=== PATIENT | female | born 1935 | race Caucasian/White ===

== ENCOUNTER 2016-06-28 16:54 | Inpatient (IN) | payer OTHER ==
[~2016-06-28] VITALS: Ht 157.5 cm; Wt 55.8 kg
[~2016-06-28 16:54] MED LIST: ACET-1256 PO; ANT125 PO; CALC500C50; LOSA50TA6 PO; METO1TAB69 PO; NRV5 PO; POTA20TA16 PO
[2016-06-28] MEDS ORDERED: FURO-85 PO (17:58)
[2016-06-28 18:57] LABS: HEMATOCRIT 37.5 % (37-47); MEAN CELL VOLUME 86.2 fL (80-100); MEAN CORPUSCULAR HEMOGLOBIN 29.4 pg (25-34); MEAN CORPUSCULAR HGB CONC 34.1 g/dl (32-36); MEAN PLATELET VOLUME 9.5 fL (7.4-10.4); PLATELET COUNT 268 K/uL (130-400); RED BLOOD COUNT 4.35 M/uL (4.2-5.4); WHITE BLOOD COUNT 13.95 K/uL (4.8-10.8)
--- NOTE | 2016-06-28 19:04 | DIAGNOSTIC IMAGING REPORT ---
CHEST ONE VIEW PORTABLE CLINICAL HISTORY: cp dyspnea COMPARISON STUDY: 08/19/2015 FINDINGS: Emphysematous change with chronic interstitial fibrotic change. Superimposed left basilar infiltrate. No evidence for consolidation. IMPRESSION: Interstitial infiltrate left base. Baseline emphysematous change. Electronically signed by: Caleb Perkins M.D. 06/28/2016 7:02 PM Dictated Date/Time: 06/28/2016 7:02 PM
[2016-06-28 19:10] LABS: PROTHROMBIN TIME (PATIENT) 10.5 SECONDS (9.0-12.0)
--- NOTE | 2016-06-28 19:17 | DIAGNOSTIC IMAGING REPORT ---
HEAD CT NONCONTRAST CT DOSE: 537.48 mGy.cm HISTORY: Mental status change eval for bleed TECHNIQUE: Multiaxial CT images of the head were performed without the use of intravenous contrast. Comparison: 08/24/2015 Findings: The paranasal sinuses and mastoid air cells are clear. Moderate chronic small vessel change of aging. Mild atrophy. No evidence for acute intracranial hemorrhage. No change in the prior study. Impression: Chronic and age-related change. No acute process. Electronically signed by: Caleb Perkins M.D. 06/28/2016 7:15 PM Dictated Date/Time: 06/28/2016 7:14 PM
[2016-06-28 19:27] LABS: BUN/CREATININE RATIO 16.5 (10-20); CALCIUM 9.1 mg/dl (8.5-10.1); POTASSIUM 3.7 mmol/L (3.5-5.1)
[2016-06-28 19:36] LABS: BASO ABS # 0.13 K/uL (0-0.2); BASOPHIL % 0.9 %; COMPLETE YES; EOSINOPHIL % 2.6 %; LYMPH ABS # 4.37 K/uL (1.2-3.4); LYMPHOCYTE % 31.3 %; NEUTROPHILS % 36.5 %; VARIANT LYM ABS # 2.92 K/uL; VARIANT LYMPHOCYTE % 20.9 %
--- NOTE | 2016-06-28 20:34 | DIAGNOSTIC IMAGING REPORT ---
Right upper quadrant ultrasound GALLBLADDER-ABD LIMITED CLINICAL HISTORY: eval for cholecystitis pain. Nausea. TECHNIQUE: Ultrasound COMPARISON STUDY: None FINDINGS: The gallbladder is filled, initial gallstones and sludge. No significant pericholecystic fluid. Common bile duct 4 mm. Liver is uniform throughout. Pancreas shows partial fatty replacement. Right kidney is negative for hydronephrosis. IMPRESSION: 1. Gallstone and sludge filled gallbladder. 2. Normal caliber bile ducts. 3. Otherwise negative study Electronically signed by: Caleb Perkins M.D. 06/28/2016 8:33 PM Dictated Date/Time: 06/28/2016 8:32 PM
[2016-06-28] MEDS ORDERED: LEVAQUIN 750MG / 150ML D5W IV STA (21:06)
[2016-06-28 21:09] LABS: URINE APPEARANCE CLEAR (CLEAR); URINE BILIRUBIN NEG (NEG); URINE COLOR YELLOW; URINE NITRITE NEG (NEG); URINE SPECIFIC GRAVITY 1.005 (1.000-1.030); UROBILINOGEN NEG (NEG)
[2016-06-28 21:19] LABS: MANUAL MICROSCOPIC REQUIRED? NO; REVIEW REQ? NO
[2016-06-28] MEDS ORDERED: ACETAMINOPHEN 325 MG TAB PO PRN (22:30)
[2016-06-28] MEDS ORDERED: ONDANSETRON INJ 2 MG/ML 2 ML VIAL IV PRN (22:30)
[2016-06-28] MEDS ORDERED: NRV5 PO (22:34)
[2016-06-28] MEDS ORDERED: ONDA4TAB46 PO (22:34)
[2016-06-28] MEDS ORDERED: CALCIUM CARBONATE 500 MG CHEWABLE PO PRN (22:45)
[2016-06-28] MEDS ORDERED: MECLIZINE HCL 12.5 MG TAB PO PRN (22:45)
[2016-06-28] MEDS ORDERED: IV FLUIDS COMPLETED PRN (23:00)
--- NOTE | 2016-06-28 23:01 | Progress Note ---
Progress Note Date of Service Jun 28, 2016. Progress Note ATTENDING ADDENDUM care coordinated with FAROOQ Vargas please refer to her notes for full details, I agree with her notes patient seen and examined, records reviewed by myself as well on exam, patient seen with family at bedside patient is comfortable, resting in bed denies active abdominal pain, nausea, chills has cough, productive, does not seem to be different from baseline no other symptoms VS noted and reviewed oriented x 2 , not in distress, speaks in sentences with no effort nor accessory muscle use normal rate, regular rhythm, no murmurs clear breath sounds bilaterally non distended, soft, nontender, no you's sign no bipedal edema, erythema, warmth WBC 13.9 CXR: IMPRESSION: Interstitial infiltrate left base. Baseline emphysematous change. CT abdomen: cholelithiasis and sludge ASSESSMENT/PLAN> 80 year old female with history of Hypertension, Dyslipidemia, presenting with nausea, vomiting, weakness. CHOLELITHIASIS evaluated by Dr. Izaguirre 06/22/16, Surgery recommended at that time no signs of cholecystitis but with persistent nausea, poor appetite, weakness Dr. Taylor consulted POSSIBLE LEFT LOWER LOBE INFILTRATE ff up cultures empiric Doxycycline other diagnoses and plan of care as per FAROOQ Vargas's notes Satish Lennon MD
--- NOTE | 2016-06-28 23:08 | History and Physical ---
History & Physical Date & Time of Service: Jun 28, 2016 at 22:40 Chief Complaint: Gallbladder Issues Primary Care Physician: Cruz Perez M.D. History of Present Illness Source: patient, family (daughters at bedside), clinic records This is an 80 y/o female with PMH of Alzheimer's dementia, HTN, HL, and other problems listed below who presents to the ED with nausea. Patient was recently evaluated by Dr. Taylor on 06/22 for abdominal pain and vomiting with cholelithiasis on gallbladder ultrasound. Cholecystectomy was recommended but patient declined at that time. Family states she is no longer having abdominal pain, but since 3 days ago has been ill with nausea but no vomiting, poor PO intake, intermittent dizziness described as room spinning sensation, generalized weakness. Has history of Meniere's disease. Patient fell 3 days ago and hit her head on the door in the bathroom- she states this was due to tripping on her socks. There was no LOC or significant injury. Dizziness and nausea currently resolved. Patient has a chronic dry cough attributed to smoking. Denies focal weakness/ numbness, headache, fever, chills, rhinorrhea, sore throat, ear ache, tinnitus, abdominal pain, chest pain, SOB, diarrhea, constipation, hematochezia, melena, dysuria, frequency, jaundice, change in mental status. Denies sick contact, recent antibiotics or hospitalization. 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 (6) History of ITP Permanent Comment: dx in 2012, tx with prednisone, IVIG, rituxan Status: Chronic (7) Hypertension Status: Chronic (8) Tobacco use disorder Status: Chronic Surgical Problems: (1) H/O breast biopsy Status: Chronic (2) H/O oophorectomy Status: Chronic (3) H/O tubal ligation Status: Chronic Family History FH: pancreatic cancer MOTHER Social History Smoking Status: Current Every Day Smoker (1.5 ppd x 50 years) Alcohol Use: none Drug Use: none Marital Status: Occupational Status: retired Immunizations History of Influenza Vaccine: Yes History of Tetanus Vaccine?: Unknown History of Pneumococcal: Yes History of Hepatitis B Vaccine: No Allergies Coded Allergies: Lisinopril (Verified Allergy, Intermediate, COUGH, 06/28/16) Red Dye (Verified Allergy, Intermediate, DYES- HIVES, 06/28/16) Yellow Dyes (Verified Allergy, Intermediate, DYES- HIVES, 06/28/16) D&C Red #22 (Verified Allergy, Unknown, PER FAMILY, PT IS ALLERGIC TO ALL DYES, 06/28/16) Penicillins (Verified Allergy, Unknown, ., 06/28/16) Home Medications Scheduled Amlodipine Besylate (Amlodipine Besylate), 5 MG PO QAM Furosemide (Lasix), 20 MG PO QAM Losartan Potassium (Cozaar), 100 MG PO QPM Metoprolol Succ (Toprol Xl) (Toprol-Xl ), 50 MG PO QPM Potassium Ext Rel (Klor-Con), 10 MEQ PO QPM Scheduled PRN Acetaminophen (Tylenol), 1,000 MG PO Q6H PRN for Headache or Pain Calcium Carbonate (Antacid) (Tums), 2 TAB UD PRN for Indigestion Meclizine HCl (Meclizine HCl), 12.5 MG PO Q6H PRN for dizziness Ondansetron Hcl (Zofran), 4 MG PO Q6H PRN for Nausea Review of Systems Ten point ROS performed with pertinent positives and negatives noted in HPI. Physical Exam Vital Signs Date Time Temp Pulse Resp B/P Pulse Ox O2 Delivery O2 Flow Rate FiO2 06/28/16 20:51 94 Room Air 06/28/16 20:50 57 18 152/73 93 Room Air 06/28/16 19:26 58 06/28/16 17:11 36.4 70 20 169/72 97 Room Air General Appearance: no apparent distress, + thin, + pertinent finding (alert cooperative 80 year old female, no distress, daughters at bedside) Head: normocephalic, atraumatic Eyes: normal inspection, PERRL, EOMI ENT: pharynx normal, + pertinent finding (cerumen occluding left TM. right TM normal. dry oral mucosa. chronic left ear hearing loss. right ear grossly normal hearing. ) Neck: supple, trachea midline Respiratory/Chest: lungs clear, normal breath sounds, no respiratory distress Cardiovascular: regular rate, rhythm, no murmur Abdomen/GI: normal bowel sounds, non tender, soft Extremities/Musculoskelatal: no calf tenderness, no pedal edema Neurologic/Psych: alert, normal mood/affect, oriented x 3, + pertinent finding (grossly nonfocal. mild short term memory loss. ) Skin: normal color, warm/dry Diagnostics Laboratory Results Results Past 24 Hours Test 06/28/16 17:15 06/28/16 18:32 06/28/16 18:41 Range/Units Urine Color YELLOW Urine Appearance CLEAR CLEAR Urine pH 5.0 4.5-7.5 Urine Specific [place] 1.005 1.000-1.030 Urine Protein NEG NEG Urine Glucose (UA) NEG NEG Urine Ketones NEG NEG Urine Occult Blood NEG NEG Urine Nitrite NEG NEG Urine Bilirubin NEG NEG Urine Urobilinogen NEG NEG Urine Leukocyte Esterase NEG NEG White Blood Count 13.95 4.8-10.8 K/uL Red Blood Count 4.35 4.2-5.4 M/uL Hemoglobin 12.8 12.0-16.0 g/dL Hematocrit 37.5 37-47 % Mean Corpuscular Volume 86.2 80-100 fL Mean Corpuscular Hemoglobin 29.4 25-34 pg Mean Corpuscular Hemoglobin Concent 34.1 32-36 g/dl Platelet Count 268 130-400 K/uL Mean Platelet Volume 9.5 7.4-10.4 fL RDW Standard Deviation 45.7 36.4-46.3 fL RDW Coefficient of Variation 14.5 11.5-14.5 % Neutrophils % (Manual) 36.5 % Lymphocytes % (Manual) 31.3 % Variant Lymphocytes % (manual) 20.9 % Monocytes % (Manual) 7.8 % Eosinophils % (Manual) 2.6 % Basophils % (Manual) 0.9 % Neutrophils # (Manual) 5.09 1.4-6.5 K/uL Total Absolute Neutrophils 5.09 1.4-6.5 K/uL Lymphocytes # (Manual) 4.37 1.2-3.4 K/uL Absolute Variant Lymphocytes 2.92 K/uL Total Absolute Lymphocytes 7.28 1.2-3.4 K/uL Monocytes # (Manual) 1.09 0.11-0.59 K/uL Eosinophils # (Manual) 0.36 0-0.5 K/uL Basophils # (Manual) 0.13 0-0.2 K/uL Prothrombin Time 10.5 9.0-12.0 SECONDS Prothromb Time International Ratio 1.0 0.9-1.1 Activated Partial Thromboplast Time 26.1 21.0-31.0 SECONDS Partial Thromboplastin Ratio 1.0 Sodium Level 138 136-145 mmol/L Potassium Level 3.7 3.5-5.1 mmol/L Chloride Level 101 98-107 mmol/L Carbon Dioxide Level 30 21-32 mmol/L Anion Gap 7.0 3-11 mmol/L Blood Urea Nitrogen 17 7-18 mg/dl Creatinine 1.00 0.60-1.20 mg/dl Est Creatinine Clear Calc Drug Dose 36.3 ml/min Estimated GFR () 61.6 Estimated GFR (Non- 53.2 BUN/Creatinine Ratio 16.5 10-20 Random Glucose 111 70-99 mg/dl Calcium Level 9.1 8.5-10.1 mg/dl Total Bilirubin 0.5 0.2-1 mg/dl Direct Bilirubin 0.1 0-0.2 mg/dl Aspartate Amino Transf (AST/SGOT) 18 15-37 U/L Alanine Aminotransferase (ALT/SGPT) 20 12-78 U/L Alkaline Phosphatase 77 45-117 U/L Total Protein 7.0 6.4-8.2 gm/dl Albumin 3.6 3.4-5.0 gm/dl Lipase 139 73-393 U/L Bedside Troponin I 0.000 0-0.045 ng/ml Microbiology Results 06/28/16 Blood Culture, Received Pending 06/28/16 Blood Culture, Received Pending 06/28/16 Urine Culture, Received Pending Diagnostic Radiology HEAD CT NONCONTRAST CT DOSE: 537.48 mGy.cm HISTORY: Mental status change eval for bleed TECHNIQUE: Multiaxial CT images of the head were performed without the use of intravenous contrast. Comparison: 08/24/2015 Findings: The paranasal sinuses and mastoid air cells are clear. Moderate chronic small vessel change of aging. Mild atrophy. No evidence for acute intracranial hemorrhage. No change in the prior study. Impression: Chronic and age-related change. No acute process. Right upper quadrant ultrasound GALLBLADDER-ABD LIMITED CLINICAL HISTORY: eval for cholecystitis pain. Nausea. TECHNIQUE: Ultrasound COMPARISON STUDY: None FINDINGS: The gallbladder is filled, initial gallstones and sludge. No significant pericholecystic fluid. Common bile duct 4 mm. Liver is uniform throughout. Pancreas shows partial fatty replacement. Right kidney is negative for hydronephrosis. IMPRESSION: 1. Gallstone and sludge filled gallbladder. 2. Normal caliber bile ducts. 3. Otherwise negative study CHEST ONE VIEW PORTABLE CLINICAL HISTORY: cp dyspnea COMPARISON STUDY: 08/19/2015 FINDINGS: Emphysematous change with chronic interstitial fibrotic change. Superimposed left basilar infiltrate. No evidence for consolidation. IMPRESSION: Interstitial infiltrate left base. Baseline emphysematous change. EKG sinus bradycardia with nonspecific STTWA in V4-V5, no significant change when compared to prior EKG Impression Assessment and Plan SYMPTOMATIC CHOLELITHIASIS Has known gallstones; seen by Dr. Taylor as outpatient on 06/22; surgery recommended but patient declined at that time GB ultrasound- gallstone and sludge filled gallbladder, normal bile ducts, no evidence of acute cholecystitis Clear liquid diet tonight NPO after midnight Gentle IVF's PRN antiemetics General surgery consulted; patient will be seen tomorrow am POSSIBLE PNEUMONIA Possible LLL infiltrate on CXR Has chronic nonproductive cough; hx limited somewhat by dementia Afebrile; + leukocytosis (WBC approx 14k) Given dose of Levaquin in ER Continue empiric treatment with doxycycline Blood cultures pending; check sputum culture HYPERTENSION Continue amlodipine, losartan, metoprolol DIASTOLIC DYSFUNCTION Appears dry on examination Hold Lasix Getting gentle IVF's S/P FALL Likely mechanical fall from history + head trauma CT head- no acute findings Fall precautions PT/ OT evaluations VERTIGO Continue PRN meclizine DVT PROPHYLAXIS SCD's CODE STATUS DNR per my discussion with patient and family Patient seen in collaboration with Dr. Lennon. Please see his addendum. VTE Prophylaxis VTE Risk Assessment Done? Y/N: Yes Risk Level: Moderate
--- NOTE | 2016-06-28 23:34 | EMERGENCY ROOM VISIT NOTE ---
History Report prepared by Eduardo: Renetta Munoz Under the Supervision of: Dr. Casper Gomez M.D. First contact with patient: 18:12 Chief Complaint: GI ASSESSMENT Stated Complaint: GALLBLADDER ISSUES Nursing Triage Summary: PT HAS GALL STONES, SAW DR. MARTIN LAST WEEK, NO SURGERY SCHEDULED YET, BUT CALLED PCP TODAY FOR WORSENING SYMPTOMS OF NAUSEA AND DIZZINESS AND WAS DIRECTED TO COME HERE BECAUSE DR. [employer]DE [employer] IS MAINTENANCE CLERK FOR SURGERY TODAY. History of Present Illness The patient is a 80 year old female who presents to the Emergency Room with complaints of intermittent nausea and vomiting starting a few weeks ago. She has been taking TUMS without relief. She had abdominal pain last week but denies any abdominal pain this week. She has had a loss of appetite, and generalized weakness. She also started having room-spinning dizziness 3 days ago. The dizziness only occurs with ambulation. 2 days ago, the patient fell and hit the back of her head on a door. The patient currently denies any dizziness or abdominal pain. She feels fatigued. She denies fevers, headache, chest pain, shortness of breath, diarrhea, black/bloody stools, or any other complaints. As per family member, the patient had an ultrasound which showed several gallstones. She was referred to the Emergency Room by her PCP for a cholecystectomy. Source of History: patient, family Onset: a few weeks ago Position: other (global) Quality: other (nausea and vomiting) Timing: intermittent Modifying Factors (Relieving): other (TUMS without relief) Associated Symptoms: + fatigue, + weakness, No SOB, No chest pain, No diarrhea, No fevers, No headache Review of Systems See HPI for pertinent positives & negatives. A total of 10 systems reviewed and were otherwise negative. 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 (8) HTN (hypertension) (9) Hypertension (10) Hypertensive urgency (11) Pneumonia (12) Pneumonia (13) Tobacco use disorder Surgical Problems: (1) H/O breast biopsy (2) H/O oophorectomy (3) H/O tubal ligation Family History Patient reports no known family medical history. Social History Smoking Status: Current Every Day Smoker Alcohol Use: none Drug Use: none Marital Status: Housing Status: lives with family Occupation Status: retired Current/Historical Medications Scheduled Amlodipine Besylate (Amlodipine Besylate), 5 MG PO QAM Furosemide (Lasix), 20 MG PO QAM Losartan Potassium (Cozaar), 100 MG PO QPM Metoprolol Succ (Toprol Xl) (Toprol-Xl ), 50 MG PO QPM Potassium Ext Rel (Klor-Con), 10 MEQ PO QPM Scheduled PRN Acetaminophen (Tylenol), 1,000 MG PO Q6H PRN for Headache or Pain Calcium Carbonate (Antacid) (Tums), 2 TAB UD PRN for Indigestion Meclizine HCl (Meclizine HCl), 12.5 MG PO Q6H PRN for dizziness Ondansetron Hcl (Zofran), 4 MG PO Q6H PRN for Nausea Allergies Coded Allergies: Lisinopril (Verified Allergy, Intermediate, COUGH, 06/28/16) Red Dye (Verified Allergy, Intermediate, DYES- HIVES, 06/28/16) Yellow Dyes (Verified Allergy, Intermediate, DYES- HIVES, 06/28/16) D&C Red #22 (Verified Allergy, Unknown, PER FAMILY, PT IS ALLERGIC TO ALL DYES, 06/28/16) Penicillins (Verified Allergy, Unknown, ., 06/28/16) Physical Exam Vital Signs Date Time Temp Pulse Resp B/P Pulse Ox O2 Delivery O2 Flow Rate FiO2 06/28/16 20:51 94 Room Air 06/28/16 20:50 57 18 152/73 93 Room Air 06/28/16 19:26 58 06/28/16 17:11 36.4 70 20 169/72 97 Room Air Physical Exam Constitutional: Vital signs reviewed. Eyes: Pupils are equal round reactive to light. Conjunctiva are noninjected. ENT: Pharynx is clear without erythema or exudate. Mucous membranes are moist. Neck supple without meningeal signs. Respiratory: Clear to auscultation bilaterally. Breath sounds are equal bilaterally. Cardiovascular: Regular rate and rhythm. No rubs or gallops. GI: Soft, nondistended and nontender. Bowel sounds are present. Musculoskeletal: No peripheral edema. No lower extremity tenderness. Integumentary: No cyanosis. Neurological: The patient is awake and alert. No focal deficits. Psychiatric: Normal affect. Medical Decision & Procedures ER Provider Diagnostic Interpretation: X-ray results as stated below per interpretation by me and the radiologist: CHEST ONE VIEW PORTABLE CLINICAL HISTORY: cp dyspnea COMPARISON STUDY: 08/19/2015 FINDINGS: Emphysematous change with chronic interstitial fibrotic change. Superimposed left basilar infiltrate. No evidence for consolidation. IMPRESSION: Interstitial infiltrate left base. Baseline emphysematous change. Electronically signed by: Caleb Perkins M.D. 06/28/2016 7:02 PM Dictated Date/Time: 06/28/2016 7:[address] results as stated below per my review and radiologist interpretation. Right upper quadrant ultrasound GALLBLADDER-ABD LIMITED CLINICAL HISTORY: eval for cholecystitis pain. Nausea. TECHNIQUE: Ultrasound COMPARISON STUDY: None FINDINGS: The gallbladder is filled, initial gallstones and sludge. No significant pericholecystic fluid. Common bile duct 4 mm. Liver is uniform throughout. Pancreas shows partial fatty replacement. Right kidney is negative for hydronephrosis. IMPRESSION: 1. Gallstone and sludge filled gallbladder. 2. Normal caliber bile ducts. 3. Otherwise negative study Electronically signed by: Caleb Perkins M.D. 06/28/2016 8:33 PM Dictated Date/Time: 06/28/2016 8:[address] NON[address]AST CT DOSE: 537.48 mGy.cm HISTORY: Mental status change eval for bleed TECHNIQUE: Multiaxial CT images of the head were performed without the use of intravenous contrast. Comparison: 08/24/2015 Findings: The paranasal sinuses and mastoid air cells are clear. Moderate chronic small vessel change of aging. Mild atrophy. No evidence for acute intracranial hemorrhage. No change in the prior study. Impression: Chronic and age-related change. No acute process. Electronically signed by: Caleb Perkins M.D. 06/28/2016 7:15 PM Dictated Date/Time: 06/28/2016 7:14 PM Laboratory Results 06/28/16 18:32 Red Blood Count 4.35, Mean Corpuscular Volume 86.2, Mean Corpuscular Hemoglobin 29.4, Mean Corpuscular Hemoglobin Concent 34.1, Mean Platelet Volume 9.5 06/28/16 18:32 Test 06/28/16 17:15 06/28/16 18:32 06/28/16 18:41 Urine Color YELLOW Urine Appearance CLEAR (CLEAR) Urine pH 5.0 (4.5-7.5) Urine Specific [place] 1.005 (1.000-1.030) Urine Protein NEG (NEG) Urine Glucose (UA) NEG (NEG) Urine Ketones NEG (NEG) Urine Occult Blood NEG (NEG) Urine Nitrite NEG (NEG) Urine Bilirubin NEG (NEG) Urine Urobilinogen NEG (NEG) Urine Leukocyte Esterase NEG (NEG) White Blood Count 13.95 K/uL (4.8-10.8) Red Blood Count 4.35 M/uL (4.2-5.4) Hemoglobin 12.8 g/dL (12.0-16.0) Hematocrit 37.5 % (37-47) Mean Corpuscular Volume 86.2 fL (80-100) Mean Corpuscular Hemoglobin 29.4 pg (25-34) Mean Corpuscular Hemoglobin Concent 34.1 g/dl (32-36) Platelet Count 268 K/uL (130-400) Mean Platelet Volume 9.5 fL (7.4-10.4) RDW Standard Deviation 45.7 fL (36.4-46.3) RDW Coefficient of Variation 14.5 % (11.5-14.5) Neutrophils % (Manual) 36.5 % Lymphocytes % (Manual) 31.3 % Variant Lymphocytes % (manual) 20.9 % Monocytes % (Manual) 7.8 % Eosinophils % (Manual) 2.6 % Basophils % (Manual) 0.9 % Neutrophils # (Manual) 5.09 K/uL (1.4-6.5) Total Absolute Neutrophils 5.09 K/uL (1.4-6.5) Lymphocytes # (Manual) 4.37 K/uL (1.2-3.4) Absolute Variant Lymphocytes 2.92 K/uL Total Absolute Lymphocytes 7.28 K/uL (1.2-3.4) Monocytes # (Manual) 1.09 K/uL (0.11-0.59) Eosinophils # (Manual) 0.36 K/uL (0-0.5) Basophils # (Manual) 0.13 K/uL (0-0.2) Prothrombin Time 10.5 SECONDS (9.0-12.0) Prothromb Time International Ratio 1.0 (0.9-1.1) Activated Partial Thromboplast Time 26.1 SECONDS (21.0-31.0) Partial Thromboplastin Ratio 1.0 Anion Gap 7.0 mmol/L (3-11) Est Creatinine Clear Calc Drug Dose 36.3 ml/min Estimated GFR () 61.6 Estimated GFR (Non- 53.2 BUN/Creatinine Ratio 16.5 (10-20) Calcium Level 9.1 mg/dl (8.5-10.1) Total Bilirubin 0.5 mg/dl (0.2-1) Direct Bilirubin 0.1 mg/dl (0-0.2) Aspartate Amino Transf (AST/SGOT) 18 U/L (15-37) Alanine Aminotransferase (ALT/SGPT) 20 U/L (12-78) Alkaline Phosphatase 77 U/L (45-117) Total Protein 7.0 gm/dl (6.4-8.2) Albumin 3.6 gm/dl (3.4-5.0) Lipase 139 U/L (73-393) Bedside Troponin I 0.000 ng/ml (0-0.045) Laboratory results as reviewed by me. Medications Administered Medications (Trade) Dose Ordered Sig/Abhilash Route Start Time Stop Time Status Last Admin Dose Admin Levofloxacin (Levaquin / D5W) 750 mg NOW STAT IV 06/28/16 21:06 06/28/16 21:07 DC 06/28/16 21:52 750 MG ECG Indication: nausea, vomiting, weakness Rate (beats per minute): 58 Rhythm: sinus bradycardia Findings: nonspecific-ST abn (Lateral), T-wave inversion (v3-v4), no ectopy Comparison ECG Date: August 25, 2015 Change: no significant change ED Course 1811: The patient was evaluated in room C10. A complete history and physical exam was performed. 1849: I discussed the patient's case with Dr. Leiva, general surgeon with [facility] [employer] [facility]. He wants to see the patient's ultrasound and the white blood cell count before giving me his recommendations. 2044: I discussed the patient's case with Dr. Leiva. He recommended hospitalizing the patient and Dr. Martin will evaluate her tomorrow. 2050: I reevaluated the patient who is resting comfortably. I discussed test results with the patient and her family. I also discussed the treatment plan with the patient and her family. They verbalized agreement. She will be evaluated for further management and care. 2104: I discussed the patient's case with Dr. Santo, from [facility] Hospitalist Service. 2105: Levofloxacin 750 mg IV Medical Decision This is an 80-year-old female presents with nausea, head injury and generalized weakness. Differential diagnosis includes metabolic derangement, intracranial hemorrhage, anemia, cardiac, infection. I did perform a limited focused review of portions of the patient's old chart on the electronic medical record. The patient was admitted for vertigo on August 24, 2015. MRI of her brain in August 2015 showed no acute process. I did evaluate the patient as noted above. The patient states she was sent here by her PCP for cholecystectomy as she had gallstones on her ultrasound weeks ago. She, however, denies having any abdominal pain at this time. She does state that she feels weak and lightheaded when she stands up and also fell and hit her head recently. IV access was established. The patient was placed on a continuous monitoring tech. I did order and personally review the patient' s 12-lead EKG and chest x-ray as described above. She does appear to have a left-sided infiltrate. I did order and review the patient's blood work as noted in the electronic medical record. Her white blood cell count is elevated. LFTs are unremarkable. I did order a CT of the head. I did review the images myself as well as the radiology report as described above. There is no evidence of intracranial hemorrhage. I did order a right upper quadrant ultrasound which showed gallstones without signs of cholecystitis. I did order blood cultures and treated patient with Levaquin IV. I did discuss the test results with the patient and her family. I did discuss the case with the surgeon on-call who felt that there was no indication for acute cholecystectomy. He recommended hospitalization by the hospitalist service and consultation in the morning by Dr. Martin. I did discuss the case with the hospitalist and registered nurse hh case manager. Consults Time Called: 1844 Consulting Physician: Dr. Leiva, general surgeon with [facility] Returned Call: 1849 I discussed the patient's case with Dr. Leiva, general surgeon with [facility]. He wants to see the patient's ultrasound and the white blood cell count before giving me his recommendations. Additional Consults: Time Called: 2053 Consulted Physician: Dr. Santo, from [facility] Service Returned Call: 2104 Additional Comments: I discussed the patient's case with Dr. Santo, from [facility] Service. Impression Primary Impression: Pneumonia involving left lung Additional Impressions: Dizziness Cholelithiasis Acute head injury Scribe Attestation The scribe's documentation has been prepared under my direct and personally reviewed by me in its entirety. I confirm that the note above accurately reflects all work, treatment, procedures, and medical decision making performed by me. Departure Information Dispostion Being Evaluated By Hospitalist Prescriptions Amlodipine Besylate (Amlodipine Besylate) 5 Mg Tab 5 MG PO QAM for 30 Days, #30 TABS 2 Refills Prov: Christina Vargas PA-C 06/28/16 Referrals Cruz Perez M.D. (PCP) Patient Instructions [facility] Problem Qualifiers Primary Impression: Pneumonia involving left lung Pneumonia type: due to unspecified organism Lung location: unspecified part of lung Qualified Codes: J18.9 - Pneumonia, unspecified organism Additional Impressions: Cholelithiasis Cholelithiasis location: gallbladder Cholecystitis presence: without cholecystitis Biliary obstruction: without biliary obstruction Qualified Codes: K80.20 - Calculus of gallbladder without cholecystitis without obstruction Acute head injury Encounter type: initial encounter Qualified Codes: S09.90XA - Unspecified injury of head, initial encounter
[2016-06-29 00:10] VITALS: BP 127/60; PULSE 65; TEMP 36.9; O2SAT 92
[2016-06-29] MEDS: D5W AND NSS 1,000 ML IV SCH ×2 (01:59→15:32)
[2016-06-29 04:03] VITALS: Ht 157.5 cm; Wt 55.8 kg
[2016-06-29] MEDS ORDERED: PNEUMOCOCCAL POLYSACCHARIDES 25 MCG/0.5 ML VIAL/SYR IM. ONE (05:45)
[2016-06-29] MEDS ORDERED: PNEUMOCOCCAL ADMINISTRATION CHARGE ONE (05:45)
[2016-06-29 06:17] LABS: HEMATOCRIT 32.1 % (37-47); MEAN CELL VOLUME 86.8 fL (80-100); MEAN CORPUSCULAR HEMOGLOBIN 29.7 pg (25-34); MEAN CORPUSCULAR HGB CONC 34.3 g/dl (32-36); PLATELET COUNT 223 K/uL (130-400); WHITE BLOOD COUNT 11.83 K/uL (4.8-10.8)
[2016-06-29] MEDS ORDERED: DOXYCYCLINE HYCLATE 100 MG CAP PO SCH (07:00)
[2016-06-29 07:30] VITALS: BP 125/61; PULSE 59; TEMP 36.5; O2SAT 92
[2016-06-29] MEDS ORDERED: AMLODIPINE BESYLATE 5 MG TAB PO SCH (09:00)
--- NOTE | 2016-06-29 11:22 | Surgery Consultation ---
Consultation Date of Consultation: Jun 29, 2016. Attending Physician: Andria Martinez DO History of Present Illness Virginia is a pleasant 80 year-old female who presented to emergency department with complaint of nausea, poor oral intake, weakness, and status post fall. She states her children contacted her PCP because of her issues with nausea and poor intake and her PCP advised her to report to the emergency department. Virginia saw Dr. Taylor as an outpatient last week for gallstones and was advised of cholecystectomy however patient declined at that time. Virginia overall states she has been getting nauseated off and on for the past couple of weeks however her daughter arrived later and said this has been going on for the past year but just recently got bad in the last week. Virginia believes she is getting enough to eat but might not be getting enough nutrition. Denies of any fever, chills, vomiting, vomiting blood, severe heartburn/reflux, abdominal pain, pain postprandial, changes in bowel habits, diarrhea, constipation, blood in stools, black/tarry stools, jaundice, or acholic stools. Labs in the ER showed leukocytosis of 13.95 however electrolytes were within normal limits as well as LFTS and total and direct bilirubin. US of the abdomen showed gallstones and gallbladder sludge however no evidence of pericholecystic fluid, thickened gallbladder or dilated CBD. A chest x-ray did show a interstitial infiltrate in the left base. Past Medical/Surgical History Medical Problems: (1) Acute head injury Status: Acute (2) Cholelithiasis Status: Acute (3) Dizziness Status: Acute (4) Elevated troponin Status: Acute (5) Hypertensive emergency Status: Acute (6) Mild dehydration Status: Acute (7) Pneumonia involving left lung Status: Acute (8) Vertigo Status: Acute Family History FH: pancreatic cancer MOTHER Social History Smoking Status: Current Every Day Smoker Alcohol Use: none Drug Use: none Marital Status: Housing Status: lives with family Occupation Status: retired Allergies Coded Allergies: Lisinopril (Verified Allergy, Intermediate, COUGH, 06/28/16) Red Dye (Verified Allergy, Intermediate, DYES- HIVES, 06/28/16) Yellow Dyes (Verified Allergy, Intermediate, DYES- HIVES, 06/28/16) D&C Red #22 (Verified Allergy, Unknown, PER FAMILY, PT IS ALLERGIC TO ALL DYES, 06/28/16) Penicillins (Verified Allergy, Unknown, ., 06/28/16) Home Medications Scheduled Amlodipine Besylate (Amlodipine Besylate), 5 MG PO QAM Doxycycline Hyclate (Doxycycline Hyclate), 100 MG PO BID Furosemide (Lasix), 20 MG PO QAM Losartan Potassium (Cozaar), 100 MG PO QPM Metoprolol Succ (Toprol Xl) (Toprol-Xl ), 50 MG PO QPM Potassium Ext Rel (Klor-Con), 10 MEQ PO QPM Scheduled PRN Acetaminophen (Tylenol), 1,000 MG PO Q6H PRN for Headache or Pain Calcium Carbonate (Antacid) (Tums), 2 TAB UD PRN for Indigestion Meclizine HCl (Meclizine HCl), 12.5 MG PO Q6H PRN for dizziness Ondansetron Hcl (Zofran), 4 MG PO Q6H PRN for Nausea Current Inpatient Medications Current Inpatient Medications Medications (Trade) Dose Ordered Sig/Abhilash Route Start Time Stop Time Status Last Admin Dose Admin Acetaminophen (Tylenol Tab) 650 mg Q4H PRN PO 06/28/16 22:30 07/28/16 22:29 Ondansetron HCl 4 mg 4 mg Q6H PRN IV 06/28/16 22:30 07/28/16 22:29 Dextrose/Sodium Chloride (D5W And Nss) 1,000 ml @ 60 mls/hr [id number] IV 06/28/16 22:45 07/28/16 22:44 06/29/16 01:59 60 MLS/HR Doxycycline Hyclate (Vibramycin Cap) 100 mg BID PO 06/29/16 07:00 07/06/16 06:59 06/29/16 08:42 100 MG Amlodipine Besylate (Norvasc Tab) 5 mg QAM PO 06/29/16 09:00 07/29/16 08:59 Calcium Carbonate (Tums Chew Tab) 1,000 mg Q6 PRN PO 06/28/16 22:45 07/28/16 22:44 Losartan Potassium (coZAAR TAB) 100 mg QPM PO 06/29/16 21:00 07/29/16 20:59 Meclizine HCl (Antivert Tab) 12.5 mg Q6H PRN PO 06/28/16 22:45 07/28/16 22:44 Metoprolol Succinate (Toprol Xl Tab) 50 mg QPM PO 06/29/16 21:00 07/29/16 20:59 Potassium Chloride (Klor-Con M10) 10 meq QPM PO 06/29/16 21:00 07/29/16 20:59 Miscellaneous (Iv Fluids Completed) 1 ea PRN PRN N/A 06/28/16 23:00 06/28/17 22:59 Review of Systems Constitutional: + fatigue, No chills, No fever, No sweats ENT: No hearing loss Respiratory: No shortness of breath Cardiovascular: No chest pain Abdomen: + nausea, No constipation, No diarrhea, No pain, No vomiting Genitourinary - Female: No dysuria, No urinary frequency, No urinary urgency Neurologic: + weakness Integumentary: No rash Physical Exam Date Time Temp Pulse Resp B/P Pulse Ox O2 Delivery O2 Flow Rate FiO2 06/29/16 07:30 36.5 59 17 125/61 92 Room Air 06/29/16 07:30 Room Air 06/29/16 04:03 Room Air 06/29/16 00:10 36.9 65 16 127/60 92 Room Air 06/29/16 00:10 Room Air 06/28/16 23:48 64 18 105/43 92 Room Air 06/28/16 20:51 94 Room Air 06/28/16 20:50 57 18 152/73 93 Room Air 06/28/16 19:26 58 06/28/16 17:11 36.4 70 20 169/72 97 Room Air General Appearance: WD/WN, no apparent distress Head: normocephalic, atraumatic Eyes: sclerae normal ENT: hearing grossly normal Neck: supple, trachea midline Respiratory/Chest: lungs clear, normal breath sounds, no respiratory distress, no accessory muscle use Cardiovascular: regular rate, rhythm, no murmur Abdomen/GI: non tender, soft, no organomegaly, no pulsatile mass Neurologic/Psych: alert, normal mood/affect, oriented x 3 Skin: normal color, warm/dry, no rash Laboratory Results Last 24 Hours Test 06/28/16 17:15 06/28/16 18:32 06/28/16 18:41 06/29/16 05:50 Urine Color YELLOW Urine Appearance CLEAR Urine pH 5.0 Urine Specific [place] 1.005 Urine Protein NEG Urine Glucose (UA) NEG Urine Ketones NEG Urine Occult Blood NEG Urine Nitrite NEG Urine Bilirubin NEG Urine Urobilinogen NEG Urine Leukocyte Esterase NEG White Blood Count 13.95 K/uL 11.83 K/uL Red Blood Count 4.35 M/uL 3.70 M/uL Hemoglobin 12.8 g/dL 11.0 g/dL Hematocrit 37.5 % 32.1 % Mean Corpuscular Volume 86.2 fL 86.8 fL Mean Corpuscular Hemoglobin 29.4 pg 29.7 pg Mean Corpuscular Hemoglobin Concent 34.1 g/dl 34.3 g/dl Platelet Count 268 K/uL 223 K/uL Mean Platelet Volume 9.5 fL 9.0 fL RDW Standard Deviation 45.7 fL 45.7 fL RDW Coefficient of Variation 14.5 % 14.5 % Neutrophils % (Manual) 36.5 % Lymphocytes % (Manual) 31.3 % Variant Lymphocytes % (manual) 20.9 % Monocytes % (Manual) 7.8 % Eosinophils % (Manual) 2.6 % Basophils % (Manual) 0.9 % Neutrophils # (Manual) 5.09 K/uL Total Absolute Neutrophils 5.09 K/uL Lymphocytes # (Manual) 4.37 K/uL Absolute Variant Lymphocytes 2.92 K/uL Total Absolute Lymphocytes 7.28 K/uL Monocytes # (Manual) 1.09 K/uL Eosinophils # (Manual) 0.36 K/uL Basophils # (Manual) 0.13 K/uL Prothrombin Time 10.5 SECONDS Prothromb Time International Ratio 1.0 Activated Partial Thromboplast Time 26.1 SECONDS Partial Thromboplastin Ratio 1.0 Sodium Level 138 mmol/L Potassium Level 3.7 mmol/L Chloride Level 101 mmol/L Carbon Dioxide Level 30 mmol/L Anion Gap 7.0 mmol/L Blood Urea Nitrogen 17 mg/dl Creatinine 1.00 mg/dl Est Creatinine Clear Calc Drug Dose 36.3 ml/min Estimated GFR () 61.6 Estimated GFR (Non- 53.2 BUN/Creatinine Ratio 16.5 Random Glucose 111 mg/dl Calcium Level 9.1 mg/dl Total Bilirubin 0.5 mg/dl Direct Bilirubin 0.1 mg/dl Aspartate Amino Transf (AST/SGOT) 18 U/L Alanine Aminotransferase (ALT/SGPT) 20 U/L Alkaline Phosphatase 77 U/L Total Protein 7.0 gm/dl Albumin 3.6 gm/dl Lipase 139 U/L Bedside Troponin I 0.000 ng/ml Right upper quadrant ultrasound GALLBLADDER-ABD LIMITED CLINICAL HISTORY: eval for cholecystitis pain. Nausea. TECHNIQUE: Ultrasound COMPARISON STUDY: None FINDINGS: The gallbladder is filled, initial gallstones and sludge. No significant pericholecystic fluid. Common bile duct 4 mm. Liver is uniform throughout. Pancreas shows partial fatty replacement. Right kidney is negative for hydronephrosis. IMPRESSION: 1. Gallstone and sludge filled gallbladder. 2. Normal caliber bile ducts. 3. Otherwise negative study Assessment & Plan Gallstones and Gallbladder sludge with associated Chronic Nausea and poor appetite - Per patient has been last couple of weeks - Per daughter has been going for at least the last year but increasingly worse this past week - No evidence of acute cholecystitis - Outpatient evaluation by DR. Taylor last week, pt declined surgery at the time LLL Infiltrate/Pneumonia Plan: Patient is not having any abdominal pain and abdominal examination completely benign Would recommend outpatient cholecystectomy given patient's continued Nausea and poor appetite. Would also defer the cholecystectomy to be elective given patient is currently being treated for Pneumonia. Will have patient follow-up in office once discharged to schedule elective cholecystectomy Thank you for the consultation and involving us in the care of this patient. Dr. Taylor has seen and examined patient, agrees with above stated findings and treatment plan.
[2016-06-29 11:30] VITALS: BP 125/59; PULSE 55; O2SAT 92
--- NOTE | 2016-06-29 12:07 | Progress Note ---
Subjective Date of Service: Jun 29, 2016. Subjective Pt evaluation today including: conversation w/ patient, physical exam, lab review, review of studies, review of inpatient medication list Saw/examined the patient in room 386 Patient is doing well today, no abdominal pain today presented with RUQ abdominal pain Very eager to go home; does not want to stay another night and states she will follow-up with primary care and general surgery Problem List Medical Problems: (1) Acute head injury Status: Acute (2) Cholelithiasis Status: Acute (3) Dizziness Status: Acute (4) Elevated troponin Status: Acute (5) Hypertensive emergency Status: Acute (6) Mild dehydration Status: Acute (7) Pneumonia involving left lung Status: Acute (8) Vertigo Status: Acute Review of Systems Constitutional: No chills, No fever Respiratory: + cough (chronic cough), + sputum, + wheezing, No dyspnea at rest , No dyspnea on exertion, No hemoptysis, No shortness of breath Cardiac: No chest pain, No edema, No palpitations Abdomen: + pain (improving), + see HPI, No GI bleeding, No constipation, No diarrhea, No nausea, No vomiting Medications Current Inpatient Medications Medications (Trade) Dose Ordered Sig/Abhilash Route Start Time Stop Time Status Last Admin Dose Admin Acetaminophen (Tylenol Tab) 650 mg Q4H PRN PO 06/28/16 22:30 07/28/16 22:29 Ondansetron HCl 4 mg 4 mg Q6H PRN IV 06/28/16 22:30 07/28/16 22:29 Dextrose/Sodium Chloride (D5W And Nss) 1,000 ml @ 60 mls/hr [id number] IV 06/28/16 22:45 07/28/16 22:44 06/29/16 01:59 60 MLS/HR Doxycycline Hyclate (Vibramycin Cap) 100 mg BID PO 06/29/16 07:00 07/06/16 06:59 06/29/16 08:42 100 MG Amlodipine Besylate (Norvasc Tab) 5 mg QAM PO 06/29/16 09:00 07/29/16 08:59 Calcium Carbonate (Tums Chew Tab) 1,000 mg Q6 PRN PO 06/28/16 22:45 07/28/16 22:44 Losartan Potassium (coZAAR TAB) 100 mg QPM PO 06/29/16 21:00 07/29/16 20:59 Meclizine HCl (Antivert Tab) 12.5 mg Q6H PRN PO 06/28/16 22:45 07/28/16 22:44 Metoprolol Succinate (Toprol Xl Tab) 50 mg QPM PO 06/29/16 21:00 07/29/16 20:59 Potassium Chloride (Klor-Con M10) 10 meq QPM PO 06/29/16 21:00 07/29/16 20:59 Miscellaneous (Iv Fluids Completed) 1 ea PRN PRN N/A 06/28/16 23:00 06/28/17 22:59 Objective Vital Signs Date Time Temp Pulse Resp B/P Pulse Ox O2 Delivery O2 Flow Rate FiO2 06/29/16 07:30 36.5 59 17 125/61 92 Room Air 06/29/16 07:30 Room Air 06/29/16 04:03 Room Air 06/29/16 00:10 36.9 65 16 127/60 92 Room Air 06/29/16 00:10 Room Air 06/28/16 23:48 64 18 105/43 92 Room Air 06/28/16 20:51 94 Room Air 06/28/16 20:50 57 18 152/73 93 Room Air 06/28/16 19:26 58 06/28/16 17:11 36.4 70 20 169/72 97 Room Air Physical Exam General Appearance: no apparent distress Respiratory/Chest: no respiratory distress, no accessory muscle use, + wheezing (mild end expiratory wheezing) Cardiovascular: regular rate, rhythm, no edema, no murmur Abdomen: normal bowel sounds, non tender, soft Extremities: normal inspection, no pedal edema Laboratory Results Last 24 Hours Test 06/28/16 17:15 06/28/16 18:32 06/28/16 18:41 06/29/16 05:50 Urine Color YELLOW Urine Appearance CLEAR Urine pH 5.0 Urine Specific [place] 1.005 Urine Protein NEG Urine Glucose (UA) NEG Urine Ketones NEG Urine Occult Blood NEG Urine Nitrite NEG Urine Bilirubin NEG Urine Urobilinogen NEG Urine Leukocyte Esterase NEG White Blood Count 13.95 K/uL 11.83 K/uL Red Blood Count 4.35 M/uL 3.70 M/uL Hemoglobin 12.8 g/dL 11.0 g/dL Hematocrit 37.5 % 32.1 % Mean Corpuscular Volume 86.2 fL 86.8 fL Mean Corpuscular Hemoglobin 29.4 pg 29.7 pg Mean Corpuscular Hemoglobin Concent 34.1 g/dl 34.3 g/dl Platelet Count 268 K/uL 223 K/uL Mean Platelet Volume 9.5 fL 9.0 fL RDW Standard Deviation 45.7 fL 45.7 fL RDW Coefficient of Variation 14.5 % 14.5 % Neutrophils % (Manual) 36.5 % Lymphocytes % (Manual) 31.3 % Variant Lymphocytes % (manual) 20.9 % Monocytes % (Manual) 7.8 % Eosinophils % (Manual) 2.6 % Basophils % (Manual) 0.9 % Neutrophils # (Manual) 5.09 K/uL Total Absolute Neutrophils 5.09 K/uL Lymphocytes # (Manual) 4.37 K/uL Absolute Variant Lymphocytes 2.92 K/uL Total Absolute Lymphocytes 7.28 K/uL Monocytes # (Manual) 1.09 K/uL Eosinophils # (Manual) 0.36 K/uL Basophils # (Manual) 0.13 K/uL Prothrombin Time 10.5 SECONDS Prothromb Time International Ratio 1.0 Activated Partial Thromboplast Time 26.1 SECONDS Partial Thromboplastin Ratio 1.0 Sodium Level 138 mmol/L Potassium Level 3.7 mmol/L Chloride Level 101 mmol/L Carbon Dioxide Level 30 mmol/L Anion Gap 7.0 mmol/L Blood Urea Nitrogen 17 mg/dl Creatinine 1.00 mg/dl Est Creatinine Clear Calc Drug Dose 36.3 ml/min Estimated GFR () 61.6 Estimated GFR (Non- 53.2 BUN/Creatinine Ratio 16.5 Random Glucose 111 mg/dl Calcium Level 9.1 mg/dl Total Bilirubin 0.5 mg/dl Direct Bilirubin 0.1 mg/dl Aspartate Amino Transf (AST/SGOT) 18 U/L Alanine Aminotransferase (ALT/SGPT) 20 U/L Alkaline Phosphatase 77 U/L Total Protein 7.0 gm/dl Albumin 3.6 gm/dl Lipase 139 U/L Bedside Troponin I 0.000 ng/ml Assessment and Plan This is an 80 year old female with PMH of HTN, HLD, diastolic CHF, cholelithiasis, tobacco use disorder presented to the ER due to abdominal pain; found to have pneumonia Community Acquired Pneumonia CXR - left lower lobe infiltrate afebrile, no white count agree with PO doxycycline BID x 5 days total RUQ abdominal pain U/S shows Gallstone and sludge filled gallbladder has seen general surgery as an outpatient currently, pain has completely resolved plan is likely to have outpatient scheduled cholecystectomy Tobacco Use Disorder patient admits to smoking at least 1PPD, though daughter states it is closer to 2PPD smoking cessation counseling provided she states that she does not need help and will try to quit without help HTN continue home medications Diastolic CHF Currently holding Lasix and on IVFs can restart diuretics on discharge Mechanical Fall Likely mechanical fall from history + head trauma CT head - no acute findings Fall precautions PT/ OT evaluations Vertigo Continue PRN meclizine DVT ppx SCDs DNR
[2016-06-29 16:08] VITALS: BP 132/66; PULSE 63; TEMP 36.9; O2SAT 94
[2016-06-29] MEDS ORDERED: DXY100 PO (16:39)
--- NOTE | 2016-06-29 16:45 | Discharge Instructions ---
Discharge Instructions Date of Service Jun 29, 2016. Admission Reason for Admission: Pneumonia Discharge Discharge Diagnosis / Problem: Pneumonia, RUQ pain, cholelithiasis Discharge Goals Goal(s): Decrease discomfort, Improve function, Diagnostic testing, Therapeutic intervention Activity Recommendations Activity Limitations: resume your previous activity . Instructions / Follow-Up Instructions / Follow-Up Please follow-up with Dr. Butler on July 06 @ 2:50PM - your appointment for Sunday is canceled * You will be sent home with doxycycline (antibiotic) - take this twice a day for five days * Please follow-up with Dr. Taylor, general surgery Current Hospital Diet Patient's current hospital diet: Clear Liquid Diet Discharge Diet Recommended Diet: Regular Diet Pending Studies Studies pending at discharge: no Medical Emergencies . Who to Call and When: Medical Emergencies: If at any time you feel your situation is an emergency, please call 911 immediately. . Non-Emergent Contact Non-Emergency issues call your: Primary Care Provider . . "Provider Documentation" section prepared by Andria Martinez. VTE Core Measure Inpt VTE Proph given/why not?: SCD's
--- NOTE | 2016-06-29 16:46 | Discharge Summary ---
Discharge Summary Date of Service Jun 29, 2016. Discharge Summary Admission Date: Jun 28, 2016 at 23:55 Discharge Date: Jun 29, 2016 Discharge Disposition: Home Principal Diagnosis: Community Acquired Pneumonia Cholelithiasis Medication Reconciliation New Medications: Azithromycin (Zithromax Z-Artur) 250 Mg Tab 1 PKT PO UD for 5 Days, #1 PKT Continued Medications: Acetaminophen (Tylenol) 500 Mg Tab 1000 MG PO Q6H PRN for Headache or Pain for 30 Days, #240 TAB Amlodipine Besylate (Amlodipine Besylate) 5 Mg Tab 5 MG PO QAM for 30 Days, #30 TABS 2 Refills Calcium Carbonate (Antacid) (Tums) 500 Mg Chw 2 TAB UD PRN for Indigestion Furosemide (Lasix) 20 Mg Tab 20 MG PO QAM, TAB Losartan Potassium (Cozaar) 50 Mg Tab 100 MG PO QPM for 30 Days, #60 TAB Meclizine HCl (Meclizine HCl) 12.5 Mg Tab 12.5 MG PO Q6H PRN for dizziness, #20 TAB 2 Refills Metoprolol Succ (Toprol Xl) (Toprol-Xl ) 100 Mg Tabcr 50 MG PO QPM, TAB Ondansetron Hcl (Zofran) 4 Mg Tab 4 MG PO Q6H PRN for Nausea, TAB Potassium Ext Rel (Klor-Con) 20 Meq Tabcr 10 MEQ PO QPM, TAB Admission Information HPI (per Admitting provider): This is an 80 y/o female with PMH of Alzheimer's dementia, HTN, HL, and other problems listed below who presents to the ED with nausea. Patient was recently evaluated by Dr. Taylor on 06/22 for abdominal pain and vomiting with cholelithiasis on gallbladder ultrasound. Cholecystectomy was recommended but patient declined at that time. Family states she is no longer having abdominal pain, but since 3 days ago has been ill with nausea but no vomiting, poor PO intake, intermittent dizziness described as room spinning sensation, generalized weakness. Has history of Meniere's disease. Patient fell 3 days ago and hit her head on the door in the bathroom- she states this was due to tripping on her socks. There was no LOC or significant injury. Dizziness and nausea currently resolved. Patient has a chronic dry cough attributed to smoking. Denies focal weakness/ numbness, headache, fever, chills, rhinorrhea, sore throat, ear ache, tinnitus, abdominal pain, chest pain, SOB, diarrhea, constipation, hematochezia, melena, dysuria, frequency, jaundice, change in mental status. Denies sick contact, recent antibiotics or hospitalization. Physical Exam (per Admitting): General Appearance: no apparent distress, + thin, + pertinent finding ( alert cooperative 80 year old female, no distress, daughters at bedside) Head: normocephalic, atraumatic Eyes: normal inspection, PERRL, EOMI ENT: pharynx normal, + pertinent finding (cerumen occluding left TM. right TM normal. dry oral mucosa. chronic left ear hearing loss. right ear grossly normal hearing. ) Neck: supple, trachea midline Respiratory/Chest: lungs clear, normal breath sounds, no respiratory distress Cardiovascular: regular rate, rhythm, no murmur Abdomen/GI: normal bowel sounds, non tender, soft Extremities/Musculoskelatal: no calf tenderness, no pedal edema Neurologic/Psych: alert, normal mood/affect, oriented x 3, + pertinent finding (grossly nonfocal. mild short term memory loss. ) Skin: normal color, warm/dry Hospital Course This is an 80 year old female with PMH of HTN, HLD, diastolic CHF, cholelithiasis, tobacco use disorder presented to the ER due to abdominal pain; found to have pneumonia Community Acquired Pneumonia CXR - left lower lobe infiltrate afebrile, no white count agree with PO doxycycline BID x 5 days total RUQ abdominal pain U/S shows Gallstone and sludge filled gallbladder has seen general surgery as an outpatient currently, pain has completely resolved plan is likely to have outpatient scheduled cholecystectomy Tobacco Use Disorder patient admits to smoking at least 1PPD, though daughter states it is closer to 2PPD smoking cessation counseling provided she states that she does not need help and will try to quit without help HTN continue home medications Diastolic CHF Currently holding Lasix and on IVFs can restart diuretics on discharge Mechanical Fall Likely mechanical fall from history + head trauma CT head - no acute findings Fall precautions PT/ OT evaluations Vertigo Continue PRN meclizine DVT ppx SCDs DNR Total time spent on discharge = 50 minutes This includes examination of the patient, discharge planning, medication reconciliation, and communication with other providers. Discharge Instructions Please follow-up with Dr. Butler on July 06 @ 2:50PM - your appointment for Sunday is canceled * You will be sent home with doxycycline (antibiotic) - take this twice a day for five days * Please follow-up with Dr. Taylor, general surgery
[2016-06-29 16:48] VITALS: BP 132/66; PULSE 63; TEMP 36.9; O2SAT 94
[2016-06-29] MEDS ORDERED: AZITTAB PO (18:34)
[2016-06-29] MEDS ORDERED: METOPROLOL SUCC 50MG EXT REL TAB PO SCH (21:00)
[2016-06-29] MEDS ORDERED: LOSARTAN POTASSIUM 50 MG TAB PO SCH (21:00)
[2016-06-29] MEDS ORDERED: POTASSIUM CHLORIDE 10 MEQ TABCR PO SCH (21:00)
[2016-07-27] MEDS ORDERED: MECL1TAB42 PO (10:55)
[2016-07-27] MEDS ORDERED: LOSA1TAB38 PO (10:55)
[2016-07-27] MEDS ORDERED: ACET-1256 PO (10:55)
[2016-07-27] MEDS ORDERED: CALC500C3 PO (10:55)
[2016-07-27] MEDS ORDERED: FRS/40 PO (10:55)
[2016-07-27] MEDS ORDERED: POTA20TA16 PO (10:55)
[2016-07-27] MEDS ORDERED: AMLO-110 PO (10:55)
== END 2016-06-29 18:00 | disposition home or self-care (01) | DRG 194 ==
LOC: ENRESERVDT → ENRESERVTM → C.EDB 16:55 → EDBEDREQ 22:39 → EDBEDREQSVC 22:52 → C.MSN 23:55
PROVIDERS: ADMIT Internal Medicine; ATTEND Family Medicine
DX: J18.9 Pneumonia, unspecified organism (principal); I50.32 Chronic diastolic (congestive) heart failure; K80.20 Calculus of gallbladder without cholecystitis without obstruction; Z90.721 Acquired absence of ovaries, unilateral; G30.9 Alzheimer's disease, unspecified; F02.80 Dementia in other diseases classified elsewhere, unspecified severity, without behavioral disturbance, psychotic disturbance, mood disturbance, and anxiety; I10 Essential (primary) hypertension; E78.5 Hyperlipidemia, unspecified; F17.210 Nicotine dependence, cigarettes, uncomplicated; Z98.51 Tubal ligation status; Z80.8 Family history of malignant neoplasm of other organs or systems; Z91.048 Other nonmedicinal substance allergy status; Z88.0 Allergy status to penicillin; Z88.8 Allergy status to other drugs, medicaments and biological substances; Z79.899 Other long term (current) drug therapy; K82.8 Other specified diseases of gallbladder; Z66 Do not resuscitate

== ENCOUNTER 2016-07-31 06:40 | Day surgery (SDC) | payer OTHER ==
[2016-07-27 10:56] VITALS: Ht 157.5 cm; Wt 57.5 kg
--- NOTE | 2016-07-27 11:38 | PAT Medication Instructions ---
Service Date Jul 27, 2016. Current Home Medication List Acetaminophen (Tylenol), 1,000 MG PO PRN Amlodipine (Norvasc), 5 MG PO QAM Calcium Carbonate (Tums), 2 TAB PO PRN Furosemide (Lasix), 40 MG PO QAM Losartan Potassium (Cozaar), 100 MG PO HS Meclizine Hcl (Meclizine Hcl), 1 TAB PO TID PRN for DIZZINESS Metoprolol Succ (Toprol Xl) (Toprol-Xl ), 50 MG PO QPM Ondansetron Hcl (Zofran), 4 MG PO Q6H PRN for Nausea Potassium Ext Rel (Klor-Con), 10 MEQ PO HS Medication Instructions For Your Scheduled Surgery Meclizine Hcl (Meclizine Hcl), 1 TAB PO TID PRN for DIZZINESS (not taking currently) - Hold the following medications evening prior to surgery: Losartan Potassium (Cozaar), 100 MG PO HS - Hold the following medications the morning of surgery: Furosemide (Lasix), 40 MG PO QAM Calcium Carbonate (Tums), 2 TAB PO PRN - Take the following medications the morning of surgery with a sip of water: Amlodipine (Norvasc), 5 MG PO QAM Acetaminophen (Tylenol), 1,000 MG PO PRN (if needed) Ondansetron Hcl (Zofran), 4 MG PO Q6H PRN for Nausea (only if needed) - Take the following medications as scheduled the night before surgery: Potassium Ext Rel (Klor-Con), 10 MEQ PO HS Metoprolol Succ (Toprol Xl) (Toprol-Xl ), 50 MG PO QPM Calcium Carbonate (Tums), 2 TAB PO PRN Acetaminophen (Tylenol), 1,000 MG PO PRN If you have any questions please call us at [phone] or [phone] ( Amy) or [phone]
--- NOTE | 2016-07-27 12:13 | DIAGNOSTIC IMAGING REPORT ---
CHEST PREADMISSION(PA/LAT) CLINICAL HISTORY: Preoperative evaluation. COMPARISON STUDY: Chest radiograph June 28, 2016. FINDINGS: There is mild lung hyperexpansion. There is no pneumothorax or pleural effusion. There is no consolidation to suggest pneumonia and there is no evidence of pulmonary edema. Cardiomediastinal silhouette is within normal limits. There is a 1.5 cm nodular density which projects over the left upper lung and the anterior left third rib. IMPRESSION: 1. 1.5 cm nodular density projecting over the left upper lung. This could reflect artifact, pulmonary nodule or minimal airspace disease. A chest CT is recommended to exclude a pulmonary nodule. 2. No acute cardiopulmonary findings. Electronically signed by: Simone Pruitt M.D. 07/27/2016 12:12 PM Dictated Date/Time: 07/27/2016 12:04 PM
[~2016-07-31] VITALS: Ht 157.5 cm; Wt 57.5 kg
[~2016-07-31 06:40] MED LIST changes: +AMLO-110 PO; -ANT125 PO; +CALC500C3 PO; -CALC500C50; +CLINDAMYCIN 600 MG/54 ML D5W IV SCH; +FRS/40 PO; +LACTATED RINGER'S 1000ML 1,000 ML IV SCH; +LOSA1TAB38 PO; -LOSA50TA6 PO; +MECL1TAB42 PO; +METO100T44 PO; -METO1TAB69 PO; -NRV5 PO; +ONDA4TAB46 PO
[2016-07-31 07:08] VITALS: BP 162/80; PULSE 80; TEMP 37.4; O2SAT 96
[2016-07-31] MEDS ORDERED: PROPOFOL IV EMULSION 10 MG/ML 20 ML VIAL IV ONE (07:39)
[2016-07-31] MEDS ORDERED: MIDAZOLAM HCL 1 MG/ML 2ML VIAL ONE (07:39)
[2016-07-31] MEDS ORDERED: DEXAMETHASONE SOD INJ 4 MG/ML VIAL ONE (07:39)
[2016-07-31] MEDS ORDERED: GLYCOPYRROLATE INJ 0.2 MG/ML VIAL ONE ×2 (07:39→10:19)
[2016-07-31] MEDS ORDERED: LIDOCAINE HCL 2% 2 ML VIAL (20MG/ML) ONE (07:39)
[2016-07-31] MEDS ORDERED: ROCURONIUM BROMIDE 10 MG/ML 5 ML VIAL ONE (07:39)
[2016-07-31] MEDS ORDERED: ONDANSETRON INJ 2 MG/ML 2 ML VIAL ONE (07:39)
[2016-07-31] MEDS ORDERED: NEOSTIGMINE METHYLSULFATE 5 MG/5 ML SYR ONE (07:39)
[2016-07-31] MEDS ORDERED: FENTANYL CITRATE INJ 50 MCG/1 ML 2 ML VIAL ONE (07:40)
[2016-07-31] MEDS ORDERED: ATROPINE SULFATE 0.1 MG/ML 5ML SYR IV PRN (08:30)
[2016-07-31] MEDS ORDERED: ONDANSETRON INJ 2 MG/ML 2 ML VIAL IV PRN ×2 (08:30→11:15)
[2016-07-31] MEDS ORDERED: EpHEDrine SULFATE INJ 50 MG/ML AMP IV PRN (08:30)
[2016-07-31] MEDS ORDERED: PHENYLEPHRINE 100MCG/ML 5ML SYR IV PRN (08:30)
[2016-07-31] MEDS ORDERED: HYDROmorphone INJ 2 MG/ML SYR/VIAL IV PRN (08:30)
--- NOTE | 2016-07-31 09:24 | History & Physical Bridge Note ---
H&P Re-Evaluation Bridge Note: I have examined the patient, reviewed the History & Physical and in the interval since the performance of the History & Physical I have noted the following changes of clinical significance: No changes noted
[2016-07-31] MEDS ORDERED: BUPIVACAINE 0.5 % 5 MG/1 ML MPF 30ML VIAL ONE (09:30)
[2016-07-31] MEDS ORDERED: CONRAY 60% 50 ML VIAL ONE (09:30)
[2016-07-31] MEDS ORDERED: HEPARIN SOD (PORCINE) 1000 UNIT/ML 10 ML VIAL ONE (09:30)
[2016-07-31] MEDS ORDERED: CEFAZOLIN SOD 1 GM VIAL ONE (09:30)
[2016-07-31] MEDS ORDERED: EpHEDrine SULFATE 50MG/5ML SYR ONE (10:15)
[2016-07-31] MEDS ORDERED: SODIUM CHLORIDE 0.9% 1000ML 1,000 ML IV SCH (11:01)
--- NOTE | 2016-07-31 11:01 | [facility] Post Operative Brief Note ---
Immediate Operative Summary Operative Date July 31, 2016. Pre-Operative Diagnosis Calculus of the Gallbladder Post-Operative Diagnosis Calculus of the Gallbladder Procedure(s) Performed Laparoscopic Cholecystectomy Surgeon Dr. Caleb Taylor [employer] Developer Surgeon(s) Jen Bowden PA-c Estimated Blood Loss 5 ml Findings See dictation Specimens Permanent Specimen: A: Gallbladder and contents. Drains None Anesthesia General Complication(s) None Disposition Recovery Room / PACU
--- NOTE | 2016-07-31 11:04 | Discharge Instructions ---
Discharge Instructions Date of Service July 31, 2016. Admission Reason for Admission: Cholelithiasis Discharge Discharge Diagnosis / Problem: Same Discharge Goals Goal(s): Decrease discomfort Activity Recommendations Activity Limitations: per Instructions/Follow-up section Lifting Limitations: no more than 10 pounds (for 2 weeks) Shower/Bathe: tomorrow (Shower only) . Instructions / Follow-Up Instructions / Follow-Up Post-Surgical ~ Discharge Instructions Activity Recommendations: - lifting limitation: (10 pounds for 2 weeks), - exercise/sex/sports limit: (nonstrenuous for 2 weeks), - driving or machine use limit: (none for 1 week), - Shower/bathe limit: (may shower beginning tomorrow) Diet: - Resume previous diet SPECIAL CARE INSTRUCTIONS: - May shower in 24 hours. Let water run over area and pat dry. - Leave steri strips on for one week. - Call the surgeon's office with any questions or concerns - - (ex. temperature higher than 101 degrees F, excessive bleeding or pain). MEDICATIONS: - Resume previous medications unless instructed otherwise by your surgeon. - Ibuprofen 600 mg every 6 hours with food - Percocet 1/2-1 every 4 hours, as needed for pain FOLLOW UP VISIT: - If not already scheduled, please call the office to schedule a two week follow-up appointment. Office number Current Hospital Diet Patient's current hospital diet: Discharge Diet Recommended Diet: Regular Diet Procedures Procedures Performed: Laparoscopic Cholecystectomy Pending Studies Studies pending at discharge: no Medical Emergencies . Who to Call and When: Medical Emergencies: If at any time you feel your situation is an emergency, please call 911 immediately. . Non-Emergent Contact Non-Emergency issues call your: Primary Care Provider, Surgeon Call Non-Emergent contact if: your pain is worsening, wound has increased redness, wound has increased pain . "Provider Documentation" section prepared by Caleb Taylor. . VTE Core Measure Inpt VTE Proph given/why not?: Treatment not indicated
[2016-07-31] MEDS ORDERED: OXYCODONE/ACETAMINOPHEN 5-325 TAB PO PRN (11:15)
[2016-07-31] MEDS ORDERED: MoRPHine SULFATE 4 MG/ML 1 ML CARP\\VIAL IV PRN (11:15)
--- NOTE | 2016-07-31 11:51 | Anesthesiology Progress Note ---
Anesthesia Post Op Note Date & Time July 31, 2016 at 11:49 Vital Signs Pain Intensity: 5 Vital Signs Past 12 Hours Date Time Temp Pulse Resp B/P Pulse Ox O2 Delivery O2 Flow Rate FiO2 07/31/16 11:40 66 22 155/55 91 Room Air 07/31/16 11:30 64 25 159/74 100 Mask 10 07/31/16 11:20 72 25 178/73 100 Mask 10 07/31/16 11:14 36.6 78 24 176/85 100 Mask 10 07/31/16 07:08 37.4 80 20 162/80 96 Room Air Notes Mental Status: alert / awake / arousable, participated in evaluation Pt Amnestic to Procedure: Yes Nausea / Vomiting: adequately controlled Pain: adequately controlled Airway Patency, RR, SpO2: stable & adequate BP & HR: stable & adequate Hydration State: stable & adequate Anesthetic Complications: no major complications apparent The patient is alert, her vital signs are stable and her lungs are clear. I feel that she can go home today.
[2016-07-31 11:55] VITALS: BP 139/63; PULSE 64; TEMP 36.9; O2SAT 95
[2016-07-31 12:30] VITALS: BP 148/65; PULSE 56; TEMP 36.9; O2SAT 96
[2016-07-31 12:45] VITALS: BP 130/62; PULSE 56; TEMP 36.7; O2SAT 93
--- NOTE | 2016-07-31 16:07 | OPERATIVE REPORT ---
DATE OF OPERATION: 07/31/2016 PREOPERATIVE DIAGNOSES: Cholelithiasis, chronic cholecystitis. POSTOPERATIVE DIAGNOSIS: Same. PROCEDURE: Laparoscopic cholecystectomy. SURGEON: Dr. Taylor. MANAGER LANGUAGE: Jen Bowden PA-C. FINDINGS: The patient has one very large stone within the lumen of the gallbladder. There was some mild edema in the wall surrounding the gallbladder. There were multiple adhesions of the omentum to the undersurface of the falciform ligament as well as to the undersurface of the right lobe of the liver into the gallbladder itself. The stomach and duodenum were loosely adherent to the infundibular area of the stomach. The cystic duct was not dilated. The liver was of normal size and contour. TECHNIQUE: The patient was given a general anesthetic and the area was prepped and draped in usual sterile fashion. Transverse incision was made below the umbilicus, carried down through the subcutaneous tissue to the fascia which was grasped with 2 Pauline clamps and incised between. The peritoneum was identified, incised, and the introducer was placed bluntly. The abdomen was then insufflated to a pressure of 15 mmHg with carbon dioxide. The upper midline, mid clavicular and anterior axillary introducers were placed under direct vision through small skin incisions. Traction was placed on the fundus of the gallbladder and the adhesions to the fundus and body area were taken down using cautery as they were fairly dense. The adhesions to the right lobe of the liver were then taken down using cautery as well until they were completely freed. Further dissection was carried from the body down over the infundibulum to the neck of the gallbladder, dividing adhesions with cautery or bluntly as appropriate. Once I got down to the infundibulum area, the adhesions of the stomach and duodenum were identified. No cautery was used to divide those adhesions and they were very flimsy and easily taken down with blunt dissection. That exposed the infundibulum. I then dissected the peritoneum away from the infundibulum on the lateral side and dissected the infundibulum away from the liver on the lateral side, dividing the attachment. That allowed for good mobility. I then worked on the anterior surface of the infundibulum and neck and dissected adhesions and the peritoneum and connective tissue away working from infundibulum down towards the common bile duct and then entered into the triangle of Calot. On the medial side of the infundibulum, there was some thickened fat that was somewhat scarred and sclerotic. I was able to establish a plane on its lateral side and worked posteriorly, identifying the cystic duct. The infundibulum was dissected away from the liver behind the cystic duct and the body was dissected away laterally to allow better mobility of the gallbladder. That allowed me better mobilization of the cystic duct gallbladder junction, I was able to establish a plane on the medial side and then behind it isolating in 360 degrees and confirming the site of the cystic duct gallbladder junction. Three clips were placed on the proximal cystic duct, one near the junction with the gallbladder and it was divided. That allowed me then to place inferior traction on the infundibulum and opened the triangle of Calot and divided the attachments of the infundibulum to the liver on that medial side. That allowed me then to work behind that sclerosed fat and identified the cystic artery and sclerosed fat away from it. I then dissected with cautery the fat, freeing it completely. Some of that proved to be the cystic duct lymph node which was included with the specimen. There was no bleeding from that tissue. The cystic artery was then isolated posteriorly, 2 clips placed proximally, one near the gallbladder and was divided. There was a thickened lymphatic that was also clamped and divided. The gallbladder was then peeled off the liver bed using electrocautery. It was placed into an Endobag and brought out through the upper midline incision. I opened the gallbladder on the outside and crushed the stone in order to be able to extract the gallbladder within the bag, but that was able to be accomplished. That introducer was replaced, liver edge was elevated and the subdiaphragmatic and subhepatic spaces were irrigated and the irrigation removed. The previously placed clips were intact. There was no bleeding from the dissection sites of the adhesions. The gallbladder bed of the liver was inspected and there was no bleeding. The gas was allowed to escape and the introducers were removed. The fascia of the umbilical introducer site was closed with interrupted 0 Vicryl, the skin of all the incisions was closed with 4-0 Monocryl in either an interrupted or running subcuticular fashion. The skin was cleansed, dried, benzoin placed. Steri-Strips applied. The estimated blood loss was 5 mL. Sponge, needle and instrument counts were correct x2 prior to closure. The patient tolerated surgical procedure without complication and was transferred to recovery. I attest to the content of the Intraoperative Record and any orders documented therein. Any exceptio ns are noted below.
== END 2016-07-31 13:18 | disposition home or self-care (01) ==
LOC: C.ACU 06:40
PROVIDERS: ATTEND Surgery
DX: K80.10 Calculus of gallbladder with chronic cholecystitis without obstruction (principal); G30.9 Alzheimer's disease, unspecified; F02.80 Dementia in other diseases classified elsewhere, unspecified severity, without behavioral disturbance, psychotic disturbance, mood disturbance, and anxiety; E78.5 Hyperlipidemia, unspecified; I10 Essential (primary) hypertension; D69.3 Immune thrombocytopenic purpura; Z72.0 Tobacco use

== ENCOUNTER 2016-08-01 19:41 | Inpatient (IN) | payer OTHER ==
[~2016-08-01] VITALS: Ht 157.5 cm; Wt 57.9 kg
[~2016-08-01 19:41] MED LIST changes: -CLINDAMYCIN 600 MG/54 ML D5W IV SCH; -LACTATED RINGER'S 1000ML 1,000 ML IV SCH
[2016-08-01] MEDS ORDERED: SODIUM CHLORIDE 0.9% 250ML 250 ML IV STA (21:09)
[2016-08-01] MEDS ORDERED: SODIUM CHLORIDE 0.9% 1000ML 1,000 ML IV STA (21:09)
[2016-08-01] MEDS ORDERED: ALBUT/IPRATROP 3MG/0.5MG NEB 3 ML VIAL INH STA (21:35)
--- NOTE | 2016-08-01 21:42 | EMERGENCY ROOM VISIT NOTE ---
History Report prepared by Eduardo: Olvin Pablo Under the Supervision of: Dr. Shayla Cabrera M.D. First contact with patient: 20:35 Chief Complaint: FEVER Stated Complaint: FEVER AFTER GALLBLADDER SURGERY History of Present Illness The patient is an 80 year old female who presents to the Emergency Room with complaints of a sudden fever over 100 starting around 1600 tonight. The patient states that she had gall bladder surgery yesterday, and her daughter states that the fever came on very quickly. The patient additionally has chills. She denies any shortness of breath, nausea, coughing, abdominal pain, and urinary symptoms. The patient was given Tylenol around 1415 today, and it somewhat subsided. The family additionally state that the patient has a history of dementia, Alzheimer's, and a past history of lymphoma. Source of History: patient, family Onset: 1600 Position: other (global) Quality: other (fever) Timing: other (sudden) Associated Symptoms: + chills, No SOB, No abdominal pain, No cough, No nausea, No urinary symptoms Review of Systems See HPI for pertinent positives & negatives. A total of 10 systems reviewed and were otherwise negative. 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 (8) HTN (hypertension) (9) Hypertension (10) Hypertensive urgency (11) Pneumonia (12) Pneumonia (13) Thrombocytopenia (14) Tobacco use disorder Surgical Problems: (1) H/O breast biopsy (2) H/O oophorectomy (3) H/O tubal ligation Family History FH: pancreatic cancer MOTHER Social History Smoking Status: Never Smoker Alcohol Use: none Drug Use: none Marital Status: Housing Status: lives with family Occupation Status: retired Current/Historical Medications Scheduled Acetaminophen (Tylenol), 1,000 MG PO PRN Amlodipine (Norvasc), 5 MG PO QAM Calcium Carbonate (Tums), 2 TAB PO PRN Furosemide (Lasix), 40 MG PO QAM Losartan Potassium (Cozaar), 100 MG PO HS Metoprolol Succ (Toprol Xl) (Toprol-Xl ), 50 MG PO QPM Potassium Ext Rel (Klor-Con), 10 MEQ PO HS Scheduled PRN Meclizine Hcl (Meclizine Hcl), 1 TAB PO TID PRN for DIZZINESS Ondansetron Hcl (Zofran), 4 MG PO Q6H PRN for Nausea Allergies Coded Allergies: Red Dye (Verified Allergy, Intermediate, DYES- HIVES, 08/01/16) Yellow Dyes (Verified Allergy, Intermediate, DYES- HIVES, 08/01/16) D&C Red #22 (Verified Allergy, Unknown, PER FAMILY, PT IS ALLERGIC TO ALL DYES, 08/01/16) Penicillins (Verified Allergy, Unknown, UNKNOWN, 08/01/16) Shellfish (Unverified Allergy, Unknown, UNKNOWN, 08/01/16) Lisinopril (Unverified Adverse Reaction, Intermediate, COUGH, 08/01/16) Uncoded Allergies: LIS (Allergy, Severe, Hives, 07/31/16) Physical Exam Vital Signs Date Time Temp Pulse Resp B/P Pulse Ox O2 Delivery O2 Flow Rate FiO2 08/01/16 23:31 74 20 124/64 94 Nasal Cannula 2.0 08/01/16 22:03 59 20 143/49 100 Room Air Nebulizer 08/01/16 21:45 64 08/01/16 19:50 36.7 75 20 129/65 93 Room Air Physical Exam Vital signs reviewed. General: Elderly well-appearing female, in no significant distress. HEENT: No scleral icterus, PERRLA, neck supple. Atraumatic. Cardiovascular: Regular rate and rhythm, no extra sounds. Pulmonary: Faint scattered wheezes, normal work of breathing. Abdomen: Mild abdominal distension. No rebound or guarding. Well healing and approximated incisions. Soft, nontender, positive bowel sounds. Musculoskeletal: Atraumatic, no peripheral edema. Neurologic: Patient awake alert and answers most questions appropriately, full strength in all 4 extremities. Cranial nerves 2 through 12 grossly intact. Skin: Warm, dry, no rash Medical Decision & Procedures ER Provider Diagnostic Interpretation: Radiology results as stated below per my review and radiologist interpretation: PA CHEST RADIOGRAPH AND UPRIGHT AND SUPINE AP RADIOGRAPHS OF THE ABDOMEN CLINICAL HISTORY: Cough and low-grade fever status post cholecystectomy. COMPARISON STUDY: Chest radiograph July 27, 2016. FINDINGS: Patient is rotated. A nodular density projecting over the right lower lung likely reflects a nipple shadow. A 1.6 cm left upper lung nodular density is again noted. There is no pneumothorax. Note is made of a probable trace right pleural effusion. Pulmonary vascularity is normal. Cardiac size is within normal limits. There are cholecystectomy clips. There is no free air. There is no radiographic evidence of a bowel obstruction. There is a [id number]-[id number] amount of stool within the colon and rectum. IMPRESSION: 1. No free air or evidence of bowel obstruction. 2. Redemonstration of an irregular 1.6 cm left upper lung nodular density. A follow-up nonemergent chest CT is recommended to evaluate for malignancy. 3. Trace right pleural effusion. 4. Mild to moderate amount of stool within the colon and rectum. Electronically signed by: Simone Pruitt M.D. 08/01/2016 10:12 PM Dictated Date/Time: 08/01/2016 10:08 PM Laboratory Results Test 08/01/16 21:25 08/01/16 21:38 08/01/16 22:23 08/01/16 23:05 Peripheral Blood Smear Path Consult Prothrombin Time 10.5 SECONDS (9.0-12.0) Prothromb Time International Ratio 1.0 (0.9-1.1) Activated Partial Thromboplast Time 23.7 SECONDS (21.0-31.0) Partial Thromboplastin Ratio 0.9 Lipase 114 U/L (73-393) Thyroid Stimulating Hormone (TSH) 1.380 uIu/ml (0.300-4.500) Bedside Lactic Acid Venous 2.66 mmol/L (0.90-1.70) Urine Color YELLOW Urine Appearance CLEAR (CLEAR) Urine pH 5.0 (4.5-7.5) Urine Specific [place] 1.008 (1.000-1.030) Urine Protein NEG (NEG) Urine Glucose (UA) NEG (NEG) Urine Ketones NEG (NEG) Urine Occult Blood TRACE (NEG) Urine Nitrite NEG (NEG) Urine Bilirubin NEG (NEG) Urine Urobilinogen NEG (NEG) Urine Leukocyte Esterase NEG (NEG) Urine WBC (Auto) 0 /hpf (0-5) Urine RBC (Auto) 0-4 /hpf (0-4) Urine Hyaline Casts (Auto) 0 /lpf (0-5) Urine Epithelial Cells (Auto) >30 /lpf (0-5) Urine Bacteria (Auto) NEG (NEG) Lactic Acid Level 1.8 mmol/L (0.4-2.0) Heparin-PF4 Antibody Screen NEG (NEG) Laboratory results per my review. Medications Administered Medications (Trade) Dose Ordered Sig/Abhilash Route Start Time Stop Time Status Last Admin Dose Admin Sodium Chloride 250 ml @ 999 mls/hr Q16M STAT IV 08/01/16 21:09 08/01/16 21:24 DC 08/01/16 21:41 999 MLS/HR Sodium Chloride (Nss 1000ml) 1,000 ml @ 125 mls/hr Q8H STAT IV 08/01/16 21:09 08/02/16 01:18 DC 08/01/16 21:41 125 MLS/HR Albuterol/ Ipratropium (Duoneb) 3 ml NOW STAT INH 08/01/16 21:35 08/01/16 21:41 DC 08/01/16 22:01 3 ML Potassium Chloride (Klor-Con M10) 20 meq NOW STAT PO 08/01/16 22:48 08/01/16 22:52 DC 08/01/16 23:45 20 MEQ ED Course 2103: Past medical records reviewed. The patient was evaluated in room B3. A complete history and physical examination was performed. 2108: Sodium Chloride 1000 ml @ 125 mls/hr IV, Sodium Chloride 250 ml @ 999 mls/ hr IV 2134: DuoNeb 3ml INH 2234: I reevaluated the patient, and I discussed the treatment plan with her and her family. 2244: I discussed the patient's case with Dr. Santo. He is going to evaluate the patient for further treatment Medical Decision Differentials include pneumonia, UTI, wound infection, DVT, medication effect This pt was evaluated and appeared to be in no distress. IV access was obtained and lab work was drawn. Pt was placed on the clinical research monitor. Pt appears to be doing well and is afebrile. Pt was hydrated with NSS. Lab work reveals a significant thrombocytopenia to 10,000. This is a marked change from recent previous. Abd XR series reveals evidence of pulmonary nodule, previously described. Pt is stable, VSS. SHe was d/w the hospitalist for further management. Consults Time Called: 2234 Consulting Physician: Dr. Santo Returned Call: 2244 I discussed the patient's case with Dr. Santo. He is going to evaluate the patient for further treatment Impression Primary Impression: Thrombocytopenia Scribe Attestation The scribe's documentation has been prepared under my direction and personally reviewed by me in its entirety. I confirm that the note above accurately reflects all work, treatment, procedures, and medical decision making performed by me. Departure Information Dispostion Being Evaluated By Hospitalist Referrals Cruz Perez M.D. (PCP) Patient Instructions [facility]
[2016-08-01 21:57] LABS: PARTIAL THROMBOPLASTIN RATIO 0.9; PROTHROMBIN TIME (PATIENT) 10.5 SECONDS (9.0-12.0)
[2016-08-01 22:07] LABS: CREATININE 1.3 mg/dl (0.60-1.20); POTASSIUM 3.4 mmol/L (3.5-5.1)
[2016-08-01 22:10] LABS: CALCIUM 9.7 mg/dl (8.5-10.1)
--- NOTE | 2016-08-01 22:13 | DIAGNOSTIC IMAGING REPORT ---
PA CHEST RADIOGRAPH AND UPRIGHT AND SUPINE AP RADIOGRAPHS OF THE ABDOMEN CLINICAL HISTORY: Cough and low-grade fever status post cholecystectomy. COMPARISON STUDY: Chest radiograph July 27, 2016. FINDINGS: Patient is rotated. A nodular density projecting over the right lower lung likely reflects a nipple shadow. A 1.6 cm left upper lung nodular density is again noted. There is no pneumothorax. Note is made of a probable trace right pleural effusion. Pulmonary vascularity is normal. Cardiac size is within normal limits. There are cholecystectomy clips. There is no free air. There is no radiographic evidence of a bowel obstruction. There is a ubjz-ym-apftzjng amount of stool within the colon and rectum. IMPRESSION: 1. No free air or evidence of bowel obstruction. 2. Redemonstration of an irregular 1.6 cm left upper lung nodular density. A follow-up nonemergent chest CT is recommended to evaluate for malignancy. 3. Trace right pleural effusion. 4. Mild to moderate amount of stool within the colon and rectum. Electronically signed by: Simone Pruitt M.D. 08/01/2016 10:12 PM Dictated Date/Time: 08/01/2016 10:08 PM
[2016-08-01 22:18] LABS: HEMATOCRIT 33.2 % (37-47); MEAN CELL VOLUME 89.5 fL (80-100); MEAN CORPUSCULAR HEMOGLOBIN 29.6 pg (25-34); MEAN CORPUSCULAR HGB CONC 33.1 g/dl (32-36); PLATELET COUNT 10 K/uL (130-400); RED BLOOD COUNT 3.71 M/uL (4.2-5.4)
[2016-08-01 22:19] LABS: BASO % 0.1 %; BASO ABS # 0.02 K/uL (0-0.2); COMPLETE YES; IG% 0.4 %; LYMPH % 16.7 %; LYMPH ABS # 2.79 K/uL (1.2-3.4); MONO % 1.1 %; NEUT % 80.7 %; PLT ESTIMATE SIGNIFIC DECREASED
[2016-08-01 22:33] LABS: URINE APPEARANCE CLEAR (CLEAR); URINE BILIRUBIN NEG (NEG); URINE COLOR YELLOW; URINE EPITHELIAL CELL AUTO >30 /lpf (0-5); URINE NITRITE NEG (NEG); URINE SPECIFIC GRAVITY 1.008 (1.000-1.030); UROBILINOGEN NEG (NEG); ZZUR CULT IF INDIC CLEAN CATCH NO
[2016-08-01 22:34] LABS: MANUAL MICROSCOPIC REQUIRED? NO; REVIEW REQ? NO
[2016-08-01] MEDS ORDERED: POTASSIUM CHLORIDE 10 MEQ TABCR PO STA (22:48)
[2016-08-02] VITALS (9 sets, daily range): BP systolic 127–163; BP diastolic 54–73; PULSE 63–75; TEMP 36.7–37.3; O2SAT 91–97; Ht 157.5 cm; Wt 57.9 kg
[2016-08-02] MEDS ORDERED: ONDANSETRON INJ 2 MG/ML 2 ML VIAL IV PRN (00:30)
[2016-08-02] MEDS ORDERED: HYDROmorphone INJ 0.5 MG/0.5 ML SYR IV PRN (00:30)
[2016-08-02] MEDS ORDERED: ACETAMINOPHEN 325 MG TAB PO PRN (00:30)
[2016-08-02] MEDS ORDERED: TRAMADOL HCL 50 MG TAB PO PRN (00:30)
[2016-08-02] MEDS ORDERED: DEXAMETHASONE 4 MG TAB PO ONE (01:21)
[2016-08-02] MEDS ORDERED: PANTOprazole SOD 40 MG TAB PO ONE (01:29)
[2016-08-02] MEDS ORDERED: NSS + 20MEQ KCL 1000ML 1,000 ML IV ONE (01:30)
[2016-08-02] MEDS ORDERED: DEXAMETHASONE 4 MG TAB PO STA (03:43)
--- NOTE | 2016-08-02 06:55 | HISTORY & PHYSICAL EXAMINATION ---
DATE OF ADMISSION: 08/01/2016 PRIMARY CARE DOCTOR: Dr. Perez CHIEF COMPLAINT: Low-grade fever. History was obtained from patient, patient's daughters and records. Patient seems to be a reliable historian despite dementia dx. HISTORY OF PRESENT ILLNESS: Medical history is significant for Chronic diastolic heart failure as per records (EF 65-%, TTE 2016) dementia, hypertension, hyperlipidemia, history of non-Hodgkin's sp treatment, history of ITP status post prednisone treatment and ongoing tobacco abuse. Recent confinement in last May 2016 for symptomatic cholelithiasis. Patient was also found to have community-acquired pneumonia at that time. Discharged on doxycycline. Patient had an elective laparoscopic cholecystectomy on 07/31/2016. Perioperative heparin was administered. Postop, the patient was comfortable. This morning, the patient had low-grade fever of 100. No chest pain, no shortness of breath, no unusual belly pain. No unusual bleeding. Px was brought to the Emergency Room. MEDICAL HISTORY: As above. SURGERIES: She has had a cholecystectomy, breast procedures, oophorectomy, bilateral tubal ligation. HOME MEDICATIONS: Include; Toprol-XL, Zofran, Klor-Con, Tylenol, Norvasc, Tums, Lasix, Cozaar and meclizine. ALLERGIES: TO LISINOPRIL, RED DYE, PENICILLIN, YELLOW DYE, SHELLFISH. FAMILY HISTORY: Pancreatic cancer. PERSONAL AND SOCIAL HISTORY: Pack daily. No chronic intake of alcoholic beverages. Retired from office work. REVIEW OF SYSTEMS: As per HPI. All other ROS negative. PHYSICAL EXAMINATION: VITAL SIGNS: Blood pressure was noted to be 129/65, pulse rate 70, RR 26 T 37 O2 sats 93 on room air. GENERAL: Noted to be oriented, no respiratory distress. SKIN: Pallor. HEENT: Pale palpebral conjunctivae. Dry mucosa. NECK: No JVD. Supple. CHEST: Decreased breath sounds. HEART: Regular rate and rhythm. ABDOMEN: Some distention, nontender. EXTREMITIES: No edema. no tenderness NEUROLOGIC: No gross focality. LABORATORIES: Hemoglobin was noted to be 11, hematocrit 30.2 white cell count 16.7, platelets 10, Sodium 137 potassium 3.4, chloride 98, CO2 31, BUN 25 creatinine 1.4 and glucose 114. HIT screen was negative. Abdominal x-ray; no free air or bowel obstruction. irregular 1.6 left upper lung density demonstration, mild to moderate amount of stool within the colon and rectum. ASSESSMENT: 1. Thrombocytopenia possible recurrent idiopathic thrombocytopenic purpura. No overt bleeding for now. 2. Recent laparoscopic cholecystectomy clinically well 3. Hypertension, stable. 4. Acute renal failure, Hypokalemia secondary to illness, home meds 5. chronic diastolic HF as per records patient on the dry side. 6. hx NHL sp chemotx (2012) 7. Ongoing tobacco abuse. 8. SPN, L 9. dementia as per records PLAN: GMF possible steroids for ITP, Hematology consultation RE thrombocytopenia (px known to Dr. Rai) Replace K monitor serum crea response to IVF hold home diuretics, ARB until crea at baseline Surgery consult RE postop eval DVT prophylaxis, SCDs. RE thrombocytopenia DNR. Patient's family is requesting that incidental finding of lung nodule and potential work-up not be mentioned to patient for now. They would like issue to be discussed by patient's PCP w/ patient on outpx ffup. ADDENDUM: Case was discussed with [facility] [place] libr[facility] field applications specialist, Dr. Fish. She recommends 4-day course of Decadron 40 mg PO as well as antacid for now. Daughter is requesting updates from providers. Miss Evelina Singh ([phone]).. MTDD
[2016-08-02] MEDS: AMLODIPINE BESYLATE 5 MG TAB PO SCH (07:58)
[2016-08-02] MEDS: NICOTINE 14 MG/24 HR TDSY TD SCH (08:00)
[2016-08-02 08:02] LABS: MEAN CORPUSCULAR HEMOGLOBIN 29.8 pg (25-34); MEAN CORPUSCULAR HGB CONC 33.5 g/dl (32-36); PLATELET COUNT 4 K/uL (130-400); RED BLOOD COUNT 3.82 M/uL (4.2-5.4); WHITE BLOOD COUNT 12.82 K/uL (4.8-10.8)
[2016-08-02 08:03] LABS: BASO % 0.4 %; BASO ABS # 0.05 K/uL (0-0.2); EOS % 1.2 %; IG% 0.9 %; LYMPH % 18.4 %; LYMPH ABS # 2.36 K/uL (1.2-3.4); MONO % 3.4 %; NEUT % 75.7 %; PLT ESTIMATE SIGNIFIC DECREASED
[2016-08-02 08:05] LABS: COMPLETE YES; IPF 23.6 % (0.9-8.3)
[2016-08-02 08:06] LABS: BUN/CREATININE RATIO 20.2 (10-20); CALCIUM 8.6 mg/dl (8.5-10.1); CREATININE 0.99 mg/dl (0.60-1.20); POTASSIUM 3.9 mmol/L (3.5-5.1)
[2016-08-02] MEDS ORDERED: hydrOXYzine HCL 25 MG TAB PO SCH (09:30)
[2016-08-02] MEDS ORDERED: ACETAMINOPHEN 325 MG TAB PO SCH (09:30)
--- NOTE | 2016-08-02 10:59 | Medical Consult ---
Consultation Date of Consultation: August 02, 2016. Attending Physician: Yadira Chaudhary DO Reason for Consultation: Acute thrombocytopenia History of Present Illness Mrs. 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 She required IVIG and prednisone as well as a platelet transfusion. Her platelets normalized without any bleeding complications. 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 Her platelet count drops twice in 2012, in October and December, which required prednisone to be administered. Subsequently, she received Rituxan from January to March 2013 ; her prednisone therapy was discontinued in May 2013 and her platelet remained in normal limits. She was evaluated by General Surgery in July 2016 for right upper quadrant pain , cholelithiasis identified by imaging. She underwent a laparoscopic cholecystectomy on 07/31/2016. She reports this surgery was uneventful and she was discharged home. She returned to the [facility] ER yesterday evening for low- grade temperature of 100 degree Fahrenheit. She was not reporting other infectious symptoms at the time. Blood work in the ER revealed her platelet count to be at 10 K. She did not admit to any active bleeding. Dr. Fish was paged in the evening and with her history of ITP recommended dexamethasone 40 mg p.o. daily for the next 4 days and to recheck her PLT with morning labs. Additional history obtained from the patient at bedside. The patient is sitting up in bed in eating her breakfast. She reports feeling "fine." She is not having dyspnea or cough. She reports a good appetite. She has some right upper quadrant soreness from her surgery in the past 2 days, but nothing out of the ordinary. She is not having nausea her last bowel movement was the day of her surgery, prior to the procedure. She has not noted any bloody or black stools. She is urinating without hematuria. She did bruise on the dorsum of her left hand 1 peripheral venous access was placed for her surgery, but does not report spontaneous bruising. Past Medical/Surgical History Medical Problems: (1) Acute head injury Status: Acute (2) Cholelithiasis Status: Acute (3) Dizziness Status: Acute (4) Elevated troponin Status: Acute (5) Hypertensive emergency Status: Acute (6) Mild dehydration Status: Acute (7) Pneumonia involving left lung Status: Acute (8) Vertigo Status: Acute Family History FH: pancreatic cancer MOTHER Social History Smoking Status: Current Every Day Smoker Drug Use: none Marital Status: Housing Status: lives with family Occupation Status: retired Allergies Coded Allergies: Red Dye (Verified Allergy, Intermediate, DYES- HIVES, 08/01/16) Yellow Dyes (Verified Allergy, Intermediate, DYES- HIVES, 08/01/16) D&C Red #22 (Verified Allergy, Unknown, PER FAMILY, PT IS ALLERGIC TO ALL DYES, 08/01/16) Penicillins (Verified Allergy, Unknown, UNKNOWN, 08/01/16) Shellfish (Unverified Allergy, Unknown, UNKNOWN, 08/01/16) Lisinopril (Unverified Adverse Reaction, Intermediate, COUGH, 08/01/16) Uncoded Allergies: LIS (Allergy, Severe, Hives, 07/31/16) Current Inpatient Medications Current Inpatient Medications Medications (Trade) Dose Ordered Sig/Abhilash Route Start Time Stop Time Status Last Admin Dose Admin Acetaminophen (Tylenol Tab) 650 mg Q4H PRN PO 08/02/16 00:30 09/01/16 00:29 Amlodipine Besylate (Norvasc Tab) 5 mg QAM PO 08/02/16 09:00 09/01/16 08:59 08/02/16 07:58 5 MG Metoprolol Succinate (Toprol Xl Tab) 50 mg QPM PO 08/02/16 21:00 09/01/16 20:59 Ondansetron HCl (Zofran Inj) 4 mg Q6H PRN IV 08/02/16 00:30 09/01/16 00:29 Tramadol HCl (Ultram Tab) 25 mg Q6H PRN PO 08/02/16 00:30 09/01/16 00:29 Hydromorphone HCl 0.5 mg 0.5 mg Q3H PRN IV 08/02/16 00:30 08/16/16 00:29 Potassium Chloride/Sodium Chloride (Nss + 20meq KCl 1000ml) 1,000 ml @ 75 mls/hr [id number] ONCE IV 08/02/16 01:30 08/02/16 14:49 08/02/16 01:51 75 MLS/HR Nicotine (Nicoderm Cq 14MG Patch) 1 patch QAM TD 08/02/16 09:00 09/01/16 08:59 Miscellaneous (Remove Nicoderm Patch) 1 ea HS N/A 08/02/16 21:00 09/01/16 20:59 Dexamethasone (Decadron Tab) 40 mg DAILY PO 08/03/16 09:00 09/02/16 08:59 Pantoprazole Sodium (Protonix Tab) 40 mg QAM PO 08/03/16 09:00 08/06/16 08:59 Acetaminophen (Tylenol Tab) 650 mg 0930 PO 08/02/16 09:30 08/02/16 18:00 08/02/16 10:20 650 MG Hydroxyzine HCl (Vistaril Tab) 25 mg 0930 PO 08/02/16 09:30 08/02/16 18:00 08/02/16 10:19 25 MG Review of Systems Constitutional: No chills, No fever, No sweats ENT: No unusual epistaxis Respiratory: No cough, No shortness of breath, No sputum Cardiovascular: No chest pain, No edema Abdomen: + pain, No GI bleeding, No constipation, No diarrhea, No nausea Musculoskeletal: No calf pain Genitourinary - Female: No hematuria Neurologic: No vertigo Hematologic / Lymphatic: No abnormal bleeding/bruising, No clotting problems Integumentary: No bleeding, No rash Physical Exam Date Time Temp Pulse Resp B/P Pulse Ox O2 Delivery O2 Flow Rate FiO2 08/02/16 10:15 37.1 67 18 163/68 93 08/02/16 09:56 36.8 68 18 163/54 93 08/02/16 08:00 Room Air 2.0 Nasal Cannula 08/02/16 07:15 37.3 66 18 160/73 97 Nasal Cannula 2.0 08/02/16 00:50 90 20 97 08/02/16 00:30 36.8 75 20 162/68 95 Nasal Cannula 2.0 08/01/16 23:31 74 20 124/64 94 Nasal Cannula 2.0 08/01/16 22:03 59 20 143/49 100 Room Air Nebulizer 08/01/16 21:45 64 08/01/16 19:50 36.7 75 20 129/65 93 Room Air General Appearance: WD/WN, no apparent distress Head: normocephalic, atraumatic Eyes: sclerae normal ENT: hearing grossly normal Respiratory/Chest: no respiratory distress, no accessory muscle use, + decreased breath sounds Cardiovascular: regular rate, rhythm, no edema Abdomen/GI: normal bowel sounds, soft, + tenderness (nild, RUQ) Extremities/Musculoskelatal: no pedal edema Neurologic/Psych: alert, normal mood/affect, oriented x 3 Skin: warm/dry, + pertinent finding (ecchymosis noted on dorsal aspect left hand) Laboratory Results 08/01/16 21:25 Red Blood Count 3.71, Mean Corpuscular Volume 89.5, Mean Corpuscular Hemoglobin 29.6, Mean Corpuscular Hemoglobin Concent 33.1, Mean Platelet Volume , Neutrophils (%) (Auto) 80.7, Lymphocytes (%) (Auto) 16.7, Monocytes (%) (Auto) 1.1, Eosinophils (%) (Auto) 1.0, Basophils (%) (Auto) 0.1, Neutrophils # (Auto) 13.48, Lymphocytes # (Auto) 2.79, Monocytes # (Auto) 0.19, Eosinophils # (Auto) 0.16, Basophils # (Auto) 0.02 08/02/16 07:11 Red Blood Count 3.82, Mean Corpuscular Volume 89.0, Mean Corpuscular Hemoglobin 29.8, Mean Corpuscular Hemoglobin Concent 33.5, Mean Platelet Volume , Neutrophils (%) (Auto) 75.7, Lymphocytes (%) (Auto) 18.4, Monocytes (%) (Auto) 3.4, Eosinophils (%) (Auto) 1.2, Basophils (%) (Auto) 0.4, Neutrophils # (Auto) 9.71, Lymphocytes # (Auto) 2.36, Monocytes # (Auto) 0.43, Eosinophils # (Auto) 0.16, Basophils # (Auto) 0.05 08/01/16 21:25 08/02/16 07:11 Test 08/01/16 21:25 08/01/16 21:38 08/01/16 22:23 08/01/16 23:05 White Blood Count 16.70 K/uL (4.8-10.8) Red Blood Count 3.71 M/uL (4.2-5.4) Hemoglobin 11.0 g/dL (12.0-16.0) Hematocrit 33.2 % (37-47) Mean Corpuscular Volume 89.5 fL (80-100) Mean Corpuscular Hemoglobin 29.6 pg (25-34) Mean Corpuscular Hemoglobin Concent 33.1 g/dl (32-36) Platelet Count 10 K/uL (130-400) Mean Platelet Volume fL (7.4-10.4) Neutrophils (%) (Auto) 80.7 % Lymphocytes (%) (Auto) 16.7 % Monocytes (%) (Auto) 1.1 % Eosinophils (%) (Auto) 1.0 % Basophils (%) (Auto) 0.1 % Neutrophils # (Auto) 13.48 K/uL (1.4-6.5) Lymphocytes # (Auto) 2.79 K/uL (1.2-3.4) Monocytes # (Auto) 0.19 K/uL (0.11-0.59) Eosinophils # (Auto) 0.16 K/uL (0-0.5) Basophils # (Auto) 0.02 K/uL (0-0.2) RDW Standard Deviation 49.5 fL (36.4-46.3) RDW Coefficient of Variation 15.1 % (11.5-14.5) Immature Granulocyte % (Auto) 0.4 % Immature Granulocyte # (Auto) 0.06 K/uL (0.00-0.02) Platelet Estimate SIGNIFIC DECREASED Prothrombin Time 10.5 SECONDS (9.0-12.0) Prothromb Time International Ratio 1.0 (0.9-1.1) Activated Partial Thromboplast Time 23.7 SECONDS (21.0-31.0) Partial Thromboplastin Ratio 0.9 Anion Gap 8.0 mmol/L (3-11) Est Creatinine Clear Calc Drug Dose 27.3 ml/min Estimated GFR () 44.9 Estimated GFR (Non- 38.7 BUN/Creatinine Ratio 19.0 (10-20) Calcium Level 9.7 mg/dl (8.5-10.1) Total Bilirubin 0.4 mg/dl (0.2-1) Direct Bilirubin 0.1 mg/dl (0-0.2) Aspartate Amino Transf (AST/SGOT) 55 U/L (15-37) Alanine Aminotransferase (ALT/SGPT) 52 U/L (12-78) Alkaline Phosphatase 69 U/L (45-117) Total Protein 6.2 gm/dl (6.4-8.2) Albumin 3.1 gm/dl (3.4-5.0) Lipase 114 U/L (73-393) Thyroid Stimulating Hormone (TSH) 1.380 uIu/ml (0.300-4.500) Bedside Lactic Acid Venous 2.66 mmol/L (0.90-1.70) Urine Color YELLOW Urine Appearance CLEAR (CLEAR) Urine pH 5.0 (4.5-7.5) Urine Specific [place] 1.008 (1.000-1.030) Urine Protein NEG (NEG) Urine Glucose (UA) NEG (NEG) Urine Ketones NEG (NEG) Urine Occult Blood TRACE (NEG) Urine Nitrite NEG (NEG) Urine Bilirubin NEG (NEG) Urine Urobilinogen NEG (NEG) Urine Leukocyte Esterase NEG (NEG) Urine WBC (Auto) 0 /hpf (0-5) Urine RBC (Auto) 0-4 /hpf (0-4) Urine Hyaline Casts (Auto) 0 /lpf (0-5) Urine Epithelial Cells (Auto) >30 /lpf (0-5) Urine Bacteria (Auto) NEG (NEG) Lactic Acid Level 1.8 mmol/L (0.4-2.0) Heparin-PF4 Antibody Screen NEG (NEG) Test 08/02/16 07:11 08/02/16 07:29 White Blood Count 12.82 K/uL (4.8-10.8) Red Blood Count 3.82 M/uL (4.2-5.4) Hemoglobin 11.4 g/dL (12.0-16.0) Hematocrit 34.0 % (37-47) Mean Corpuscular Volume 89.0 fL (80-100) Mean Corpuscular Hemoglobin 29.8 pg (25-34) Mean Corpuscular Hemoglobin Concent 33.5 g/dl (32-36) Platelet Count 4 K/uL (130-400) Mean Platelet Volume fL (7.4-10.4) Neutrophils (%) (Auto) 75.7 % Lymphocytes (%) (Auto) 18.4 % Monocytes (%) (Auto) 3.4 % Eosinophils (%) (Auto) 1.2 % Basophils (%) (Auto) 0.4 % Neutrophils # (Auto) 9.71 K/uL (1.4-6.5) Lymphocytes # (Auto) 2.36 K/uL (1.2-3.4) Monocytes # (Auto) 0.43 K/uL (0.11-0.59) Eosinophils # (Auto) 0.16 K/uL (0-0.5) Basophils # (Auto) 0.05 K/uL (0-0.2) RDW Standard Deviation 49.7 fL (36.4-46.3) RDW Coefficient of Variation 15.2 % (11.5-14.5) Immature Granulocyte % (Auto) 0.9 % Immature Granulocyte # (Auto) 0.11 K/uL (0.00-0.02) Platelet Estimate SIGNIFIC DECREASED Immature Platelet Fraction 23.6 % (0.9-8.3) Anion Gap 7.0 mmol/L (3-11) Est Creatinine Clear Calc Drug Dose 35.9 ml/min Estimated GFR () 62.4 Estimated GFR (Non- 53.8 BUN/Creatinine Ratio 20.2 (10-20) Calcium Level 8.6 mg/dl (8.5-10.1) Total Bilirubin 0.6 mg/dl (0.2-1) Direct Bilirubin 0.2 mg/dl (0-0.2) Aspartate Amino Transf (AST/SGOT) 50 U/L (15-37) Alanine Aminotransferase (ALT/SGPT) 54 U/L (12-78) Alkaline Phosphatase 76 U/L (45-117) Total Protein 6.6 gm/dl (6.4-8.2) Albumin 3.3 gm/dl (3.4-5.0) Bedside Glucose 126 mg/dl (70-90) X-ray of chest/abdomen from 08/01/2016: 1.6 cm left upper lobe and a jeweler density again noted. No pneumothorax. Probable trace right pleural effusion. Pulmonary vascularity normal. Cardiac size within normal limits. No free air. No radiographic evidence of a bowel obstruction. Mild to moderate amount of stool within the colon/rectum. Peripheral smear from 08/02/2016: Thrombocytopenia appears acute. Her thrombocytopenia may be due to recurrent ITP. Heparin induced thrombocytopenia is within noted differential though platelet counts really not decrease the present level. Platelet clumping not identified. Leukocytosis is likely reactive with a differential of infection versus stress-induced. Anemia may be postsurgical, nutritional or chronic disease related. No dysplasia noted. No malignancy identified. Assessment & Plan 1. Thrombocytopenia, acute * Patient with h/o ITP in 2012, treated with prednisone, IVIG and ultimately Rituxan with resolution * Pre-op (1 month prior) CBC revealed normal PLT count, unsure of actual PLT week or day of surgery * Patient received 1 dose 40 mg dexamethasone at 0130 today at recommendation of Dr. Fish with patient's h/o ITP and to repeat CBC with AM labs * PLT with AM labs now at 4K, Dr. Rai recommends 1 unit PLT STAT and rechecking PLT count after transfusion * Further recommendations after post-transfusion PLT * Patient does not report infectious symptoms as potential exacerbation of ITP ( i.e. viral infection) * Peripheral smear unrevealing for cause * Possibly cephalosporin administered perioperatively induced drug-ITP * Immature PLT fraction elevated c/w peripheral destruction * Heparin Ab screen negative 2. Anemia- stable * Peripheral smear- possibly postsurgical, nutritional or chronic disease related * Hgb normal prior to surgery in 06/16, so this is likely from recent procedure in past few days * Defer further work up at this time 3. Leukocytosis- improving, likely from recent surgery in past 2 days, especially with lack of infectious symptoms Thanks for the consult. Dr. Rai is attending bakery clerk on this case. I performed a history and physical examination of the patient and discussed the management with Mely Castillo PA-C (08/02/2016) . I reviewed her note and agree with the documented findings and plan of care. She is a 80-year-old female, a case of acute ITP with record for the 1st time earlier in 2012, also diagnosed a case of margins B-cell lymphoma based on flow cytometry findings, she had received Rituxan chemotherapy, last cycle was received in late 2012. She completed tapering dose of prednisone 05/2013. She has not received any specific treatment for hematological problem since then. She underwent an elective laparoscopic cholecystectomy on 07/31/2016, blood workup done about 4 weeks before the surgery showed normal platelet count. Yesterday evening she came to the hospital for low-grade fever, found to significantly low platelet count 10,000, no abnormal findings noted in the peripheral smear examination done by the pathologist, no schistocytes noted, no abnormal WBC noted, normal PT and PTT noted. Received a 1st dose of oral Decadron at 40 mg last night, blood workup done in the morning shortly account dropped down to and 4000, no bleeding from surgery site, some bruising present in the upper extremities, no fever since admission, not antibody treatment at this time. This could be very well acute ITP and will continue with the high- dose Decadron for total 4 days, she did receive attachment today, follow-up platelet count is around 30,000, imaging study also showed lung nodule, long- standing h/o smoking present. Family member does not want her to know about the lung nodule at this time. Will follow-up. Dr. Allan Rai Hem/Onc
--- NOTE | 2016-08-02 13:40 | Surgery Consultation ---
Consultation Date of Consultation: August 02, 2016. Attending Physician: Yadira Chaudhary DO Reason for Consultation: post-op evaluation, Thrombocytopenia History of Present Illness Virginia is a pleasant 80 year-old who underwent laparoscopic cholecystectomy by Dr. Brandon matias at [facility] on Sunday07-31-2016. Virginia was discharged home as it was an outpatient procedure however she presented back to the emergency department last evening around 4-5 pm with complaint of fever. She was found to have thrombocytopenia with platelets of 10k. Virginia states she has been feeling well since the surgery. Denies of severe abdominal pain, chills, sweats , nausea, vomiting, increasing abdominal pain/bloating, incisional redness, drainage, or bleeding. Denies of any changes in bowel habits and no diarrhea or blood in stools. Denies of any episodes of falls or any evidence of bleeding. She states she has not noticed her pre-operative symptoms of chronic nausea and abdominal pain anymore although it is only 2 days since surgery. She had an abomdinal and chest x-ray which showed no evidence of pneumoperitoneum or bowel obstruction Past Medical/Surgical History Medical Problems: (1) Acute head injury Status: Acute (2) Cholelithiasis Status: Acute (3) Dizziness Status: Acute (4) Elevated troponin Status: Acute (5) Hypertensive emergency Status: Acute (6) Mild dehydration Status: Acute (7) Pneumonia involving left lung Status: Acute (8) Vertigo Status: Acute Family History FH: pancreatic cancer MOTHER Social History Smoking Status: Current Every Day Smoker Drug Use: none Marital Status: Housing Status: lives with family Occupation Status: retired Allergies Coded Allergies: Red Dye (Verified Allergy, Intermediate, DYES- HIVES, 08/01/16) Yellow Dyes (Verified Allergy, Intermediate, DYES- HIVES, 08/01/16) D&C Red #22 (Verified Allergy, Unknown, PER FAMILY, PT IS ALLERGIC TO ALL DYES, 08/01/16) Penicillins (Verified Allergy, Unknown, UNKNOWN, 08/01/16) Shellfish (Unverified Allergy, Unknown, UNKNOWN, 08/01/16) Lisinopril (Unverified Adverse Reaction, Intermediate, COUGH, 08/01/16) Uncoded Allergies: LIS (Allergy, Severe, Hives, 07/31/16) Home Medications Scheduled Acetaminophen (Tylenol), 1,000 MG PO PRN Amlodipine (Norvasc), 5 MG PO QAM Calcium Carbonate (Tums), 2 TAB PO PRN Furosemide (Lasix), 40 MG PO QAM Losartan Potassium (Cozaar), 100 MG PO HS Metoprolol Succ (Toprol Xl) (Toprol-Xl ), 50 MG PO QPM Potassium Ext Rel (Klor-Con), 10 MEQ PO HS Scheduled PRN Meclizine Hcl (Meclizine Hcl), 1 TAB PO TID PRN for DIZZINESS Ondansetron Hcl (Zofran), 4 MG PO Q6H PRN for Nausea Current Inpatient Medications Current Inpatient Medications Medications (Trade) Dose Ordered Sig/Abhilash Route Start Time Stop Time Status Last Admin Dose Admin Acetaminophen (Tylenol Tab) 650 mg Q4H PRN PO 08/02/16 00:30 09/01/16 00:29 Amlodipine Besylate (Norvasc Tab) 5 mg QAM PO 08/02/16 09:00 09/01/16 08:59 08/02/16 07:58 5 MG Metoprolol Succinate (Toprol Xl Tab) 50 mg QPM PO 08/02/16 21:00 09/01/16 20:59 Ondansetron HCl (Zofran Inj) 4 mg Q6H PRN IV 08/02/16 00:30 09/01/16 00:29 Tramadol HCl (Ultram Tab) 25 mg Q6H PRN PO 08/02/16 00:30 09/01/16 00:29 Hydromorphone HCl 0.5 mg 0.5 mg Q3H PRN IV 08/02/16 00:30 08/16/16 00:29 Potassium Chloride/Sodium Chloride (Nss + 20meq KCl 1000ml) 1,000 ml @ 75 mls/hr [id number] ONCE IV 08/02/16 01:30 08/02/16 14:49 08/02/16 01:51 75 MLS/HR Nicotine (Nicoderm Cq 14MG Patch) 1 patch QAM TD 08/02/16 09:00 09/01/16 08:59 Miscellaneous (Remove Nicoderm Patch) 1 ea HS N/A 08/02/16 21:00 09/01/16 20:59 Dexamethasone (Decadron Tab) 40 mg DAILY PO 08/03/16 09:00 09/02/16 08:59 Pantoprazole Sodium (Protonix Tab) 40 mg QAM PO 08/03/16 09:00 08/06/16 08:59 Acetaminophen (Tylenol Tab) 650 mg 0930 PO 08/02/16 09:30 08/02/16 18:00 08/02/16 10:20 650 MG Hydroxyzine HCl (Vistaril Tab) 25 mg 0930 PO 08/02/16 09:30 08/02/16 18:00 08/02/16 10:19 25 MG Review of Systems Constitutional: + fever (yesterday), No chills, No sweats Respiratory: + cough, No shortness of breath Cardiovascular: No chest pain Abdomen: No GI bleeding, No constipation, No diarrhea, No nausea, No pain, No vomiting Genitourinary - Female: No dysuria Hematologic / Lymphatic: No abnormal bleeding/bruising Integumentary: No itch, No rash Physical Exam Date Time Temp Pulse Resp B/P Pulse Ox O2 Delivery O2 Flow Rate FiO2 08/02/16 11:30 73 16 138/66 91 08/02/16 10:30 36.7 66 18 154/70 93 08/02/16 10:15 37.1 67 18 163/68 93 08/02/16 09:56 36.8 68 18 163/54 93 08/02/16 08:00 Room Air 2.0 Nasal Cannula 08/02/16 07:15 37.3 66 18 160/73 97 Nasal Cannula 2.0 08/02/16 00:50 90 20 97 08/02/16 00:30 36.8 75 20 162/68 95 Nasal Cannula 2.0 08/01/16 23:31 74 20 124/64 94 Nasal Cannula 2.0 08/01/16 22:03 59 20 143/49 100 Room Air Nebulizer 08/01/16 21:45 64 08/01/16 19:50 36.7 75 20 129/65 93 Room Air General Appearance: WD/WN, no apparent distress Head: normocephalic, atraumatic Eyes: sclerae normal ENT: hearing grossly normal Respiratory/Chest: lungs clear, normal breath sounds, no respiratory distress, no accessory muscle use Cardiovascular: regular rate, rhythm, no murmur Abdomen/GI: normal bowel sounds, non tender, soft, no organomegaly, no pulsatile mass Back: normal inspection Neurologic/Psych: alert, normal mood/affect, oriented x 3 Skin: normal color, warm/dry, no rash, + pertinent finding (steri stips present on abdominal incisions, no erythema or edema surrounding laparoscopy incisions) Laboratory Results Last 24 Hours Test 08/01/16 21:25 08/01/16 21:38 08/01/16 22:23 08/01/16 23:05 White Blood Count 16.70 K/uL Red Blood Count 3.71 M/uL Hemoglobin 11.0 g/dL Hematocrit 33.2 % Mean Corpuscular Volume 89.5 fL Mean Corpuscular Hemoglobin 29.6 pg Mean Corpuscular Hemoglobin Concent 33.1 g/dl Platelet Count 10 K/uL Mean Platelet Volume fL Neutrophils (%) (Auto) 80.7 % Lymphocytes (%) (Auto) 16.7 % Monocytes (%) (Auto) 1.1 % Eosinophils (%) (Auto) 1.0 % Basophils (%) (Auto) 0.1 % Neutrophils # (Auto) 13.48 K/uL Lymphocytes # (Auto) 2.79 K/uL Monocytes # (Auto) 0.19 K/uL Eosinophils # (Auto) 0.16 K/uL Basophils # (Auto) 0.02 K/uL RDW Standard Deviation 49.5 fL RDW Coefficient of Variation 15.1 % Immature Granulocyte % (Auto) 0.4 % Immature Granulocyte # (Auto) 0.06 K/uL Platelet Estimate SIGNIFIC DECREASED Peripheral Blood Smear Path Consult Prothrombin Time 10.5 SECONDS Prothromb Time International Ratio 1.0 Activated Partial Thromboplast Time 23.7 SECONDS Partial Thromboplastin Ratio 0.9 Sodium Level 137 mmol/L Potassium Level 3.4 mmol/L Chloride Level 98 mmol/L Carbon Dioxide Level 31 mmol/L Anion Gap 8.0 mmol/L Blood Urea Nitrogen 25 mg/dl Creatinine 1.30 mg/dl Est Creatinine Clear Calc Drug Dose 27.3 ml/min Estimated GFR () 44.9 Estimated GFR (Non- 38.7 BUN/Creatinine Ratio 19.0 Random Glucose 114 mg/dl Calcium Level 9.7 mg/dl Total Bilirubin 0.4 mg/dl Direct Bilirubin 0.1 mg/dl Aspartate Amino Transf (AST/SGOT) 55 U/L Alanine Aminotransferase (ALT/SGPT) 52 U/L Alkaline Phosphatase 69 U/L Total Protein 6.2 gm/dl Albumin 3.1 gm/dl Lipase 114 U/L Thyroid Stimulating Hormone (TSH) 1.380 uIu/ml Bedside Lactic Acid Venous 2.66 mmol/L Urine Color YELLOW Urine Appearance CLEAR Urine pH 5.0 Urine Specific [place] 1.008 Urine Protein NEG Urine Glucose (UA) NEG Urine Ketones NEG Urine Occult Blood TRACE Urine Nitrite NEG Urine Bilirubin NEG Urine Urobilinogen NEG Urine Leukocyte Esterase NEG Urine WBC (Auto) 0 /hpf Urine RBC (Auto) 0-4 /hpf Urine Hyaline Casts (Auto) 0 /lpf Urine Epithelial Cells (Auto) >30 /lpf Urine Bacteria (Auto) NEG Lactic Acid Level 1.8 mmol/L Heparin-PF4 Antibody Screen NEG Test 08/02/16 07:11 08/02/16 07:29 White Blood Count 12.82 K/uL Red Blood Count 3.82 M/uL Hemoglobin 11.4 g/dL Hematocrit 34.0 % Mean Corpuscular Volume 89.0 fL Mean Corpuscular Hemoglobin 29.8 pg Mean Corpuscular Hemoglobin Concent 33.5 g/dl Platelet Count 4 K/uL Mean Platelet Volume fL Neutrophils (%) (Auto) 75.7 % Lymphocytes (%) (Auto) 18.4 % Monocytes (%) (Auto) 3.4 % Eosinophils (%) (Auto) 1.2 % Basophils (%) (Auto) 0.4 % Neutrophils # (Auto) 9.71 K/uL Lymphocytes # (Auto) 2.36 K/uL Monocytes # (Auto) 0.43 K/uL Eosinophils # (Auto) 0.16 K/uL Basophils # (Auto) 0.05 K/uL RDW Standard Deviation 49.7 fL RDW Coefficient of Variation 15.2 % Immature Granulocyte % (Auto) 0.9 % Immature Granulocyte # (Auto) 0.11 K/uL Platelet Estimate SIGNIFIC DECREASED Immature Platelet Fraction 23.6 % Sodium Level 138 mmol/L Potassium Level 3.9 mmol/L Chloride Level 103 mmol/L Carbon Dioxide Level 28 mmol/L Anion Gap 7.0 mmol/L Blood Urea Nitrogen 20 mg/dl Creatinine 0.99 mg/dl Est Creatinine Clear Calc Drug Dose 35.9 ml/min Estimated GFR () 62.4 Estimated GFR (Non- 53.8 BUN/Creatinine Ratio 20.2 Random Glucose 122 mg/dl Calcium Level 8.6 mg/dl Total Bilirubin 0.6 mg/dl Direct Bilirubin 0.2 mg/dl Aspartate Amino Transf (AST/SGOT) 50 U/L Alanine Aminotransferase (ALT/SGPT) 54 U/L Alkaline Phosphatase 76 U/L Total Protein 6.6 gm/dl Albumin 3.3 gm/dl Bedside Glucose 126 mg/dl Assessment & Plan 80 year-old female who is POD # 2 s/p Laparoscopic Cholecystectomy who was discharged Sunday due to outpatient procedure and represented with Fever and found to have thrombocytopenia with platelets of 10K. - afebrile since admission - platelets 4k this am - Received platelets today (rechecking cbc this pm) - Abdomen completely soft, benign, laparoscopic incisions c/d/i with steri strips present, good bowel sounds - tolerating regular diet without issues Plan: From surgical standpoint patient doing extremely well being POD # 2 after laparoscopic procedure. Abdomen completely benign , soft, and no tenderness. Incision sites look c/d/i and no signs of infection. Would continue regular diet Continue current management established by hospitalist service in regards to patients Thrombocytopenia I have discussed this patient with Dr. Taylor who agrees with the above findings.
[2016-08-02 16:31] LABS: HEMATOCRIT 30.6 % (37-47); MEAN CORPUSCULAR HEMOGLOBIN 29.9 pg (25-34); MEAN CORPUSCULAR HGB CONC 33.7 g/dl (32-36); MEAN PLATELET VOLUME 9.1 fL (7.4-10.4); PLATELET COUNT 31 K/uL (130-400); RED BLOOD COUNT 3.44 M/uL (4.2-5.4); WHITE BLOOD COUNT 9.31 K/uL (4.8-10.8)
[2016-08-02 16:33] LABS: COMPLETE YES; LYMPH ABS # 1.86 K/uL (1.2-3.4); NEUTROPHILS % 78.3 %; PLT ESTIMATE DECREASED
[2016-08-02] MEDS: METOPROLOL SUCC 50MG EXT REL TAB PO SCH (21:24)
--- NOTE | 2016-08-02 22:18 | Progress Note ---
Medicine Progress Note Date & Time of Visit: August 02, 2016 at 09:28. Subjective 80 yo F s/p elective cholecystectomy on 07/31 presented to ER with fever on 08/01 and found to have PLT 10K -pt feeling well this morning -denies urinary urgency or dysuria -denies any coughing (recent h/o hospitalization with pneumonia in May 2016, d/c 'd on doxycycline. -does report a 20 lb weight loss in last few months -continues to smoke -per Rai, will transfuse one unit of PLTs and repeat CBC in pm -spoke with nurse to minimize IV sticks/moving out of bed/ noninvasive BP monitoring -spoke with daughter at bedside who is OK with the plan and requests we not discuss the incidental 1.6cm irregular lung nodule found on CXR -daughter states that she has made Dr. Perez aware. -pt denies nausea, tolerating PO -denies abdominal discomfort except around incision sites. Objective Last 8 Hrs Date Time Temp Pulse Resp B/P Pulse Ox O2 Delivery O2 Flow Rate FiO2 08/02/16 07:15 37.3 66 18 160/73 97 Nasal Cannula 2.0 Physical Exam: GEN: WNWD, in no acute distress, alert and oriented to person, place and time. HEENT: NC/AT, normal sclerae CARDIO: reg rate, S1/2 heard without m/g/r LUNGS: CTA bilaterally, no crackles, rales or wheezes, good diaphragmatic excursion ABD: soft, multiple laparoscopy sites that are closed with stitches and covered with steri-strips, dressings are c/d/i, no surrounding erythema, yellow betadine still noted on skin, non-distended, no rebound or guarding, +BS EXTREMITY: RP and DP palpable 2+ bilat, no LE swelling or edema, extremities are warm and well-perfused NEURO: CN 2-12 grossly intact, no gross focal deficits. MUSC: no focal deficits, able to sit up on her own, moves all extremities equally. SKIN: warm and dry, petechiae noted on LUE Laboratory Results: 08/02/16 07:11 Red Blood Count 3.82, Mean Corpuscular Volume 89.0, Mean Corpuscular Hemoglobin 29.8, Mean Corpuscular Hemoglobin Concent 33.5, Mean Platelet Volume , Neutrophils (%) (Auto) 75.7, Lymphocytes (%) (Auto) 18.4, Monocytes (%) (Auto) 3.4, Eosinophils (%) (Auto) 1.2, Basophils (%) (Auto) 0.4, Neutrophils # (Auto) 9.71, Lymphocytes # (Auto) 2.36, Monocytes # (Auto) 0.43, Eosinophils # (Auto) 0.16, Basophils # (Auto) 0.05 08/02/16 07:11 Test 08/01/16 21:25 08/01/16 21:38 08/01/16 22:23 08/01/16 23:05 Prothrombin Time 10.5 SECONDS (9.0-12.0) Prothromb Time International Ratio 1.0 (0.9-1.1) Activated Partial Thromboplast Time 23.7 SECONDS (21.0-31.0) Partial Thromboplastin Ratio 0.9 Lipase 114 U/L (73-393) Thyroid Stimulating Hormone (TSH) 1.380 uIu/ml (0.300-4.500) Bedside Lactic Acid Venous 2.66 mmol/L (0.90-1.70) Urine Color YELLOW Urine Appearance CLEAR (CLEAR) Urine pH 5.0 (4.5-7.5) Urine Specific [place] 1.008 (1.000-1.030) Urine Protein NEG (NEG) Urine Glucose (UA) NEG (NEG) Urine Ketones NEG (NEG) Urine Occult Blood TRACE (NEG) Urine Nitrite NEG (NEG) Urine Bilirubin NEG (NEG) Urine Urobilinogen NEG (NEG) Urine Leukocyte Esterase NEG (NEG) Urine WBC (Auto) 0 /hpf (0-5) Urine RBC (Auto) 0-4 /hpf (0-4) Urine Hyaline Casts (Auto) 0 /lpf (0-5) Urine Epithelial Cells (Auto) >30 /lpf (0-5) Urine Bacteria (Auto) NEG (NEG) Lactic Acid Level 1.8 mmol/L (0.4-2.0) Heparin-PF4 Antibody Screen NEG (NEG) Test 08/02/16 07:11 08/02/16 07:29 White Blood Count 12.82 K/uL (4.8-10.8) Red Blood Count 3.82 M/uL (4.2-5.4) Hemoglobin 11.4 g/dL (12.0-16.0) Hematocrit 34.0 % (37-47) Mean Corpuscular Volume 89.0 fL (80-100) Mean Corpuscular Hemoglobin 29.8 pg (25-34) Mean Corpuscular Hemoglobin Concent 33.5 g/dl (32-36) Platelet Count 4 K/uL (130-400) Mean Platelet Volume fL (7.4-10.4) Neutrophils (%) (Auto) 75.7 % Lymphocytes (%) (Auto) 18.4 % Monocytes (%) (Auto) 3.4 % Eosinophils (%) (Auto) 1.2 % Basophils (%) (Auto) 0.4 % Neutrophils # (Auto) 9.71 K/uL (1.4-6.5) Lymphocytes # (Auto) 2.36 K/uL (1.2-3.4) Monocytes # (Auto) 0.43 K/uL (0.11-0.59) Eosinophils # (Auto) 0.16 K/uL (0-0.5) Basophils # (Auto) 0.05 K/uL (0-0.2) RDW Standard Deviation 49.7 fL (36.4-46.3) RDW Coefficient of Variation 15.2 % (11.5-14.5) Immature Granulocyte % (Auto) 0.9 % Immature Granulocyte # (Auto) 0.11 K/uL (0.00-0.02) Platelet Estimate SIGNIFIC DECREASED Immature Platelet Fraction 23.6 % (0.9-8.3) Anion Gap 7.0 mmol/L (3-11) Est Creatinine Clear Calc Drug Dose 35.9 ml/min Estimated GFR () 62.4 Estimated GFR (Non- 53.8 BUN/Creatinine Ratio 20.2 (10-20) Calcium Level 8.6 mg/dl (8.5-10.1) Total Bilirubin 0.6 mg/dl (0.2-1) Direct Bilirubin 0.2 mg/dl (0-0.2) Aspartate Amino Transf (AST/SGOT) 50 U/L (15-37) Alanine Aminotransferase (ALT/SGPT) 54 U/L (12-78) Alkaline Phosphatase 76 U/L (45-117) Total Protein 6.6 gm/dl (6.4-8.2) Albumin 3.3 gm/dl (3.4-5.0) Bedside Glucose 126 mg/dl (70-90) Date/Time Source Procedure Growth Status 08/01/16 21:45 Blood Blood Culture Pending Received Last 24 Hours Test 08/01/16 21:25 08/01/16 21:38 08/01/16 22:23 08/01/16 23:05 White Blood Count 16.70 K/uL Red Blood Count 3.71 M/uL Hemoglobin 11.0 g/dL Hematocrit 33.2 % Mean Corpuscular Volume 89.5 fL Mean Corpuscular Hemoglobin 29.6 pg Mean Corpuscular Hemoglobin Concent 33.1 g/dl Platelet Count 10 K/uL Mean Platelet Volume fL Neutrophils (%) (Auto) 80.7 % Lymphocytes (%) (Auto) 16.7 % Monocytes (%) (Auto) 1.1 % Eosinophils (%) (Auto) 1.0 % Basophils (%) (Auto) 0.1 % Neutrophils # (Auto) 13.48 K/uL Lymphocytes # (Auto) 2.79 K/uL Monocytes # (Auto) 0.19 K/uL Eosinophils # (Auto) 0.16 K/uL Basophils # (Auto) 0.02 K/uL RDW Standard Deviation 49.5 fL RDW Coefficient of Variation 15.1 % Immature Granulocyte % (Auto) 0.4 % Immature Granulocyte # (Auto) 0.06 K/uL Platelet Estimate SIGNIFIC DECREASED Prothrombin Time 10.5 SECONDS Prothromb Time International Ratio 1.0 Activated Partial Thromboplast Time 23.7 SECONDS Partial Thromboplastin Ratio 0.9 Sodium Level 137 mmol/L Potassium Level 3.4 mmol/L Chloride Level 98 mmol/L Carbon Dioxide Level 31 mmol/L Anion Gap 8.0 mmol/L Blood Urea Nitrogen 25 mg/dl Creatinine 1.30 mg/dl Est Creatinine Clear Calc Drug Dose 27.3 ml/min Estimated GFR () 44.9 Estimated GFR (Non- 38.7 BUN/Creatinine Ratio 19.0 Random Glucose 114 mg/dl Calcium Level 9.7 mg/dl Total Bilirubin 0.4 mg/dl Direct Bilirubin 0.1 mg/dl Aspartate Amino Transf (AST/SGOT) 55 U/L Alanine Aminotransferase (ALT/SGPT) 52 U/L Alkaline Phosphatase 69 U/L Total Protein 6.2 gm/dl Albumin 3.1 gm/dl Lipase 114 U/L Thyroid Stimulating Hormone (TSH) 1.380 uIu/ml Bedside Lactic Acid Venous 2.66 mmol/L Urine Color YELLOW Urine Appearance CLEAR Urine pH 5.0 Urine Specific [place] 1.008 Urine Protein NEG Urine Glucose (UA) NEG Urine Ketones NEG Urine Occult Blood TRACE Urine Nitrite NEG Urine Bilirubin NEG Urine Urobilinogen NEG Urine Leukocyte Esterase NEG Urine WBC (Auto) 0 /hpf Urine RBC (Auto) 0-4 /hpf Urine Hyaline Casts (Auto) 0 /lpf Urine Epithelial Cells (Auto) >30 /lpf Urine Bacteria (Auto) NEG Lactic Acid Level 1.8 mmol/L Heparin-PF4 Antibody Screen NEG Test 08/02/16 07:11 08/02/16 07:29 White Blood Count 12.82 K/uL Red Blood Count 3.82 M/uL Hemoglobin 11.4 g/dL Hematocrit 34.0 % Mean Corpuscular Volume 89.0 fL Mean Corpuscular Hemoglobin 29.8 pg Mean Corpuscular Hemoglobin Concent 33.5 g/dl Platelet Count 4 K/uL Mean Platelet Volume fL Neutrophils (%) (Auto) 75.7 % Lymphocytes (%) (Auto) 18.4 % Monocytes (%) (Auto) 3.4 % Eosinophils (%) (Auto) 1.2 % Basophils (%) (Auto) 0.4 % Neutrophils # (Auto) 9.71 K/uL Lymphocytes # (Auto) 2.36 K/uL Monocytes # (Auto) 0.43 K/uL Eosinophils # (Auto) 0.16 K/uL Basophils # (Auto) 0.05 K/uL RDW Standard Deviation 49.7 fL RDW Coefficient of Variation 15.2 % Immature Granulocyte % (Auto) 0.9 % Immature Granulocyte # (Auto) 0.11 K/uL Platelet Estimate SIGNIFIC DECREASED Immature Platelet Fraction 23.6 % Sodium Level 138 mmol/L Potassium Level 3.9 mmol/L Chloride Level 103 mmol/L Carbon Dioxide Level 28 mmol/L Anion Gap 7.0 mmol/L Blood Urea Nitrogen 20 mg/dl Creatinine 0.99 mg/dl Est Creatinine Clear Calc Drug Dose 35.9 ml/min Estimated GFR () 62.4 Estimated GFR (Non- 53.8 BUN/Creatinine Ratio 20.2 Random Glucose 122 mg/dl Calcium Level 8.6 mg/dl Total Bilirubin 0.6 mg/dl Direct Bilirubin 0.2 mg/dl Aspartate Amino Transf (AST/SGOT) 50 U/L Alanine Aminotransferase (ALT/SGPT) 54 U/L Alkaline Phosphatase 76 U/L Total Protein 6.6 gm/dl Albumin 3.3 gm/dl Bedside Glucose 126 mg/dl Date/Time Source Procedure Growth Status 08/01/16 21:45 Blood Blood Culture Pending Received 08/01/16 21:25 Blood Blood Culture Pending Received Assessment & Plan 80 yo F s/p elective cholecystectomy on 07/31 presented to ER with fever on 08/01 and found to have PLT 10K 1. 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 Minimize IV sticks, noninvasive BP monitoring, movement out of bed. 2. Lung nodule-irregular in setting of active smoking and weight loss. PCP aware and per family request, will allow him to break the news and perform outpatient CT scan of chest. 3. post-op state-no abdominal discomfort and eating well. Gen Surg consulted. 4. Fever-not recurring since admission. Uncertain cause but no S/S of infection (cough, dysuria) or DVT (calf pain or swelling). No signs of bowel obstruction or bowel perforation on imaging. Cont to monitor and use SCDs to prevent DVT in this high risk patient. Blood cultures are pending 5. Leukocytosis-improved 6. Anemia-chronic, stable. DNR DO Lauro [facility] Current Inpatient Medications: Current Inpatient Medications Medications (Trade) Dose Ordered Sig/Abhilash Route Start Time Stop Time Status Last Admin Dose Admin Acetaminophen (Tylenol Tab) 650 mg Q4H PRN PO 08/02/16 00:30 09/01/16 00:29 Amlodipine Besylate (Norvasc Tab) 5 mg QAM PO 08/02/16 09:00 09/01/16 08:59 08/02/16 07:58 5 MG Metoprolol Succinate (Toprol Xl Tab) 50 mg QPM PO 08/02/16 21:00 09/01/16 20:59 Ondansetron HCl (Zofran Inj) 4 mg Q6H PRN IV 08/02/16 00:30 09/01/16 00:29 Tramadol HCl (Ultram Tab) 25 mg Q6H PRN PO 08/02/16 00:30 09/01/16 00:29 Hydromorphone HCl 0.5 mg 0.5 mg Q3H PRN IV 08/02/16 00:30 08/16/16 00:29 Potassium Chloride/Sodium Chloride (Nss + 20meq KCl 1000ml) 1,000 ml @ 75 mls/hr [id number] ONCE IV 08/02/16 01:30 08/02/16 14:49 08/02/16 01:51 75 MLS/HR Nicotine (Nicoderm Cq 14MG Patch) 1 patch QAM TD 08/02/16 09:00 09/01/16 08:59 Miscellaneous (Remove Nicoderm Patch) 1 ea HS N/A 08/02/16 21:00 09/01/16 20:59 Dexamethasone (Decadron Tab) 40 mg DAILY PO 08/03/16 09:00 09/02/16 08:59 Pantoprazole Sodium (Protonix Tab) 40 mg QAM PO 08/03/16 09:00 08/06/16 08:59 Acetaminophen (Tylenol Tab) 650 mg 0930 PO 08/02/16 09:30 08/02/16 18:00 Hydroxyzine HCl (Vistaril Tab) 25 mg 0930 PO 08/02/16 09:30 08/02/16 18:00
[2016-08-03] MEDS ORDERED: DEXAMETHASONE 4 MG TAB PO ONE (01:21)
[2016-08-03 07:14] VITALS: BP 167/63; PULSE 56; TEMP 36.7; O2SAT 92
[2016-08-03 07:46] LABS: BUN/CREATININE RATIO 26.3 (10-20); CALCIUM 8.5 mg/dl (8.5-10.1); CREATININE 0.89 mg/dl (0.60-1.20); POTASSIUM 3.6 mmol/L (3.5-5.1)
[2016-08-03 07:57] LABS: COMPLETE YES; HEMATOCRIT 29.5 % (37-47); LYMPH ABS # 3.25 K/uL (1.2-3.4); LYMPHOCYTE % 23.5 %; MEAN CELL VOLUME 88.6 fL (80-100); MEAN CORPUSCULAR HEMOGLOBIN 29.7 pg (25-34); MEAN CORPUSCULAR HGB CONC 33.6 g/dl (32-36); MYELOCYTE % 0.9 %; NEUTROPHILS % 67.8 %; PLATELET COUNT 21 K/uL (130-400); RED BLOOD COUNT 3.33 M/uL (4.2-5.4); TOXIC GRANULATION 1+; WHITE BLOOD COUNT 13.81 K/uL (4.8-10.8)
[2016-08-03] MEDS: NICOTINE 14 MG/24 HR TDSY TD SCH (08:41)
[2016-08-03] MEDS: DEXAMETHASONE 4 MG TAB PO SCH (08:42)
[2016-08-03] MEDS: PANTOprazole SOD 40 MG TAB PO SCH (08:42)
[2016-08-03] MEDS: AMLODIPINE BESYLATE 5 MG TAB PO SCH (08:43)
[2016-08-03] MEDS ORDERED: DEXAMETHASONE 4 MG TAB PO SCH (09:00)
--- NOTE | 2016-08-03 09:27 | Surgery Progress Note ---
Surgery Progress Note Date of Service August 03, 2016. Subjective Post OP Day: 3 + diet (tolerating regular diet), + feeling well, + flatus, + pain controlled ( Having very little), No nausea, No vomiting Objective Vital Signs: Date Time Temp Pulse Resp B/P Pulse Ox O2 Delivery O2 Flow Rate FiO2 08/03/16 07:14 36.7 56 18 167/63 92 Room Air 08/03/16 00:00 Room Air 08/02/16 23:30 36.7 63 16 127/57 94 Room Air 08/02/16 16:00 Room Air 08/02/16 15:38 36.9 70 20 137/68 93 Room Air 08/02/16 11:30 73 16 138/66 91 08/02/16 10:30 36.7 66 18 154/70 93 08/02/16 10:15 37.1 67 18 163/68 93 08/02/16 09:56 36.8 68 18 163/54 93 Abdomen: normal bowel sounds, non tender, non distended, soft Incision(s): clean, dry, intact, no erythema, no drainage Laboratory Results: Results Past 24 Hours Test 08/02/16 15:55 08/03/16 06:54 Range/Units White Blood Count 9.31 13.81 4.8-10.8 K/uL Red Blood Count 3.44 3.33 4.2-5.4 M/uL Hemoglobin 10.3 9.9 12.0-16.0 g/dL Hematocrit 30.6 29.5 37-47 % Mean Corpuscular Volume 89.0 88.6 80-100 fL Mean Corpuscular Hemoglobin 29.9 29.7 25-34 pg Mean Corpuscular Hemoglobin Concent 33.7 33.6 32-36 g/dl Platelet Count 31 21 130-400 K/uL Mean Platelet Volume 9.1 12.0 7.4-10.4 fL RDW Standard Deviation 49.3 48.8 36.4-46.3 fL RDW Coefficient of Variation 15.1 15.0 11.5-14.5 % Neutrophils % (Manual) 78.3 67.8 % Lymphocytes % (Manual) 20.0 23.5 % Monocytes % (Manual) 1.7 7.8 % Neutrophils # (Manual) 7.29 9.36 1.4-6.5 K/uL Total Absolute Neutrophils 7.29 9.36 1.4-6.5 K/uL Lymphocytes # (Manual) 1.86 3.25 1.2-3.4 K/uL Total Absolute Lymphocytes 1.86 3.25 1.2-3.4 K/uL Monocytes # (Manual) 0.16 1.08 0.11-0.59 K/uL Platelet Estimate DECREASED Red Blood Cell Morphology Unremarkable Myelocytes % 0.9 % Myelocytes # 0.12 0-0 K/uL Toxic Granulation 1+ Sodium Level 143 136-145 mmol/L Potassium Level 3.6 3.5-5.1 mmol/L Chloride Level 108 98-107 mmol/L Carbon Dioxide Level 28 21-32 mmol/L Anion Gap 7.0 3-11 mmol/L Blood Urea Nitrogen 23 7-18 mg/dl Creatinine 0.89 0.60-1.20 mg/dl Est Creatinine Clear Calc Drug Dose 39.9 ml/min Estimated GFR () 70.9 Estimated GFR (Non- 61.2 BUN/Creatinine Ratio 26.3 10-20 Random Glucose 100 70-99 mg/dl Calcium Level 8.5 8.5-10.1 mg/dl Assessment & Plan S/P lap valentino Now with thrombocytopenia, possible ITP exacerbation Stable from surgical standpoint Encourage PO
[2016-08-03 14:56] VITALS: BP 134/74; PULSE 59; TEMP 36.8; O2SAT 90
--- NOTE | 2016-08-03 15:59 | Progress Note ---
Medicine Progress Note Date & Time of Visit: August 03, 2016 at 15:53. Subjective 80 F with acute ITP post-op tolerating PO much more awake and alert today feels well overall without complaints no active bleeding but some petechiae is present Objective Last 8 Hrs Date Time Temp Pulse Resp B/P Pulse Ox O2 Delivery O2 Flow Rate FiO2 08/03/16 14:56 36.8 59 18 134/74 90 Room Air 08/03/16 08:45 Room Air Physical Exam: GEN: WNWD, in no acute distress, alert and oriented to person, place and time. HEENT: NC/AT, normal sclerae CARDIO: reg rate, S1/2 heard without m/g/r LUNGS: CTA bilaterally, no crackles, rales or wheezes, good diaphragmatic excursion ABD: soft, multiple laparoscopy sites that are closed with stitches and covered with steri-strips, dressings are c/d/i, no surrounding erythema, yellow betadine still noted on skin, non-distended, no rebound or guarding, +BS EXTREMITY: RP and DP palpable 2+ bilat, no LE swelling or edema, extremities are warm and well-perfused NEURO: CN 2-12 grossly intact, no gross focal deficits. MUSC: no focal deficits, able to sit up on her own, moves all extremities equally. SKIN: warm and dry, petechiae noted on LUE Laboratory Results: 08/03/16 06:54 Red Blood Count 3.33, Mean Corpuscular Volume 88.6, Mean Corpuscular Hemoglobin 29.7, Mean Corpuscular Hemoglobin Concent 33.6, Mean Platelet Volume 12.0 08/03/16 06:54 Test 08/01/16 21:25 08/01/16 21:38 08/01/16 22:23 08/01/16 23:05 Peripheral Blood Smear Path Consult Prothrombin Time 10.5 SECONDS (9.0-12.0) Prothromb Time International Ratio 1.0 (0.9-1.1) Activated Partial Thromboplast Time 23.7 SECONDS (21.0-31.0) Partial Thromboplastin Ratio 0.9 Lipase 114 U/L (73-393) Thyroid Stimulating Hormone (TSH) 1.380 uIu/ml (0.300-4.500) Bedside Lactic Acid Venous 2.66 mmol/L (0.90-1.70) Urine Color YELLOW Urine Appearance CLEAR (CLEAR) Urine pH 5.0 (4.5-7.5) Urine Specific [place] 1.008 (1.000-1.030) Urine Protein NEG (NEG) Urine Glucose (UA) NEG (NEG) Urine Ketones NEG (NEG) Urine Occult Blood TRACE (NEG) Urine Nitrite NEG (NEG) Urine Bilirubin NEG (NEG) Urine Urobilinogen NEG (NEG) Urine Leukocyte Esterase NEG (NEG) Urine WBC (Auto) 0 /hpf (0-5) Urine RBC (Auto) 0-4 /hpf (0-4) Urine Hyaline Casts (Auto) 0 /lpf (0-5) Urine Epithelial Cells (Auto) >30 /lpf (0-5) Urine Bacteria (Auto) NEG (NEG) Lactic Acid Level 1.8 mmol/L (0.4-2.0) Heparin-PF4 Antibody Screen NEG (NEG) Test 08/02/16 07:11 08/02/16 07:29 08/02/16 15:55 08/03/16 06:54 Immature Granulocyte % (Auto) 0.9 % White Blood Count 12.82 K/uL (4.8-10.8) 13.81 K/uL (4.8-10.8) Red Blood Count 3.82 M/uL (4.2-5.4) 3.33 M/uL (4.2-5.4) Hemoglobin 11.4 g/dL (12.0-16.0) 9.9 g/dL (12.0-16.0) Hematocrit 34.0 % (37-47) 29.5 % (37-47) Mean Corpuscular Volume 89.0 fL (80-100) 88.6 fL (80-100) Mean Corpuscular Hemoglobin 29.8 pg (25-34) 29.7 pg (25-34) Mean Corpuscular Hemoglobin Concent 33.5 g/dl (32-36) 33.6 g/dl (32-36) Platelet Count 4 K/uL (130-400) 21 K/uL (130-400) Mean Platelet Volume fL (7.4-10.4) 12.0 fL (7.4-10.4) Neutrophils (%) (Auto) 75.7 % Lymphocytes (%) (Auto) 18.4 % Monocytes (%) (Auto) 3.4 % Eosinophils (%) (Auto) 1.2 % Basophils (%) (Auto) 0.4 % Neutrophils # (Auto) 9.71 K/uL (1.4-6.5) Lymphocytes # (Auto) 2.36 K/uL (1.2-3.4) Monocytes # (Auto) 0.43 K/uL (0.11-0.59) Eosinophils # (Auto) 0.16 K/uL (0-0.5) Basophils # (Auto) 0.05 K/uL (0-0.2) Immature Granulocyte # (Auto) 0.11 K/uL (0.00-0.02) Immature Platelet Fraction 23.6 % (0.9-8.3) Total Bilirubin 0.6 mg/dl (0.2-1) Direct Bilirubin 0.2 mg/dl (0-0.2) Aspartate Amino Transf (AST/SGOT) 50 U/L (15-37) Alanine Aminotransferase (ALT/SGPT) 54 U/L (12-78) Alkaline Phosphatase 76 U/L (45-117) Total Protein 6.6 gm/dl (6.4-8.2) Albumin 3.3 gm/dl (3.4-5.0) Bedside Glucose 126 mg/dl (70-90) Platelet Estimate DECREASED Red Blood Cell Morphology Unremarkable RDW Standard Deviation 48.8 fL (36.4-46.3) RDW Coefficient of Variation 15.0 % (11.5-14.5) Neutrophils % (Manual) 67.8 % Lymphocytes % (Manual) 23.5 % Monocytes % (Manual) 7.8 % Myelocytes % 0.9 % Neutrophils # (Manual) 9.36 K/uL (1.4-6.5) Total Absolute Neutrophils 9.36 K/uL (1.4-6.5) Lymphocytes # (Manual) 3.25 K/uL (1.2-3.4) Total Absolute Lymphocytes 3.25 K/uL (1.2-3.4) Monocytes # (Manual) 1.08 K/uL (0.11-0.59) Myelocytes # 0.12 K/uL (0-0) Toxic Granulation 1+ Anion Gap 7.0 mmol/L (3-11) Est Creatinine Clear Calc Drug Dose 39.9 ml/min Estimated GFR () 70.9 Estimated GFR (Non- 61.2 BUN/Creatinine Ratio 26.3 (10-20) Calcium Level 8.5 mg/dl (8.5-10.1) Date/Time Source Procedure Growth Status 08/01/16 21:45 Blood Blood Culture - Preliminary NO GROWTH TO DATE. Resulted Last 24 Hours Test 08/02/16 15:55 08/03/16 06:54 White Blood Count 9.31 K/uL 13.81 K/uL Red Blood Count 3.44 M/uL 3.33 M/uL Hemoglobin 10.3 g/dL 9.9 g/dL Hematocrit 30.6 % 29.5 % Mean Corpuscular Volume 89.0 fL 88.6 fL Mean Corpuscular Hemoglobin 29.9 pg 29.7 pg Mean Corpuscular Hemoglobin Concent 33.7 g/dl 33.6 g/dl Platelet Count 31 K/uL 21 K/uL Mean Platelet Volume 9.1 fL 12.0 fL RDW Standard Deviation 49.3 fL 48.8 fL RDW Coefficient of Variation 15.1 % 15.0 % Neutrophils % (Manual) 78.3 % 67.8 % Lymphocytes % (Manual) 20.0 % 23.5 % Monocytes % (Manual) 1.7 % 7.8 % Neutrophils # (Manual) 7.29 K/uL 9.36 K/uL Total Absolute Neutrophils 7.29 K/uL 9.36 K/uL Lymphocytes # (Manual) 1.86 K/uL 3.25 K/uL Total Absolute Lymphocytes 1.86 K/uL 3.25 K/uL Monocytes # (Manual) 0.16 K/uL 1.08 K/uL Platelet Estimate DECREASED Red Blood Cell Morphology Unremarkable Myelocytes % 0.9 % Myelocytes # 0.12 K/uL Toxic Granulation 1+ Sodium Level 143 mmol/L Potassium Level 3.6 mmol/L Chloride Level 108 mmol/L Carbon Dioxide Level 28 mmol/L Anion Gap 7.0 mmol/L Blood Urea Nitrogen 23 mg/dl Creatinine 0.89 mg/dl Est Creatinine Clear Calc Drug Dose 39.9 ml/min Estimated GFR () 70.9 Estimated GFR (Non- 61.2 BUN/Creatinine Ratio 26.3 Random Glucose 100 mg/dl Calcium Level 8.5 mg/dl Assessment & Plan 80 yo F s/p elective cholecystectomy on 07/31 presented to ER with fever on 08/01 and 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 Thrombocytopenia-acute likely 2/2 ITP, Dr. Rai following. PLT dropped to 21 this morning, no active bleeding. Some more petechiae are present today but minimal. Cont steroids and appreciate heme input. Will repeat CBC in am. If PLT fall <20K or if bleeding develops will order repeat transfusion. 2. Lung nodule-irregular in setting of active smoking and weight loss. PCP aware and per family request, will allow him to break the news and perform outpatient CT scan of chest. 3. post-op state-no abdominal discomfort and eating well. Gen Surg consulted. Pt is healing well from their standpoint. 4. Fever-not recurring since admission. Uncertain cause but no S/S of infection (cough, dysuria) or DVT (calf pain or swelling). No signs of bowel obstruction or bowel perforation on imaging. Cont to monitor and use SCDs to prevent DVT in this high risk patient. Blood cultures are pending 5. Leukocytosis-improved 6. Anemia-chronic, stable. DNR DVT proph-SCDs as tolerated DO Lauro Perezholy [facility] Hospitalist Consultants: Hematology Current Inpatient Medications: Current Inpatient Medications Medications (Trade) Dose Ordered Sig/Abhilash Route Start Time Stop Time Status Last Admin Dose Admin Acetaminophen (Tylenol Tab) 650 mg Q4H PRN PO 08/02/16 00:30 09/01/16 00:29 Amlodipine Besylate (Norvasc Tab) 5 mg QAM PO 08/02/16 09:00 09/01/16 08:59 08/03/16 08:43 5 MG Metoprolol Succinate (Toprol Xl Tab) 50 mg QPM PO 08/02/16 21:00 09/01/16 20:59 08/02/16 21:24 50 MG Ondansetron HCl (Zofran Inj) 4 mg Q6H PRN IV 08/02/16 00:30 09/01/16 00:29 Tramadol HCl (Ultram Tab) 25 mg Q6H PRN PO 08/02/16 00:30 09/01/16 00:29 Hydromorphone HCl (Dilaudid Inj) 0.5 mg Q3H PRN IV 08/02/16 00:30 08/16/16 00:29 Nicotine (Nicoderm Cq 14MG Patch) 1 patch QAM TD 08/02/16 09:00 09/01/16 08:59 Miscellaneous (Remove Nicoderm Patch) 1 ea HS N/A 08/02/16 21:00 09/01/16 20:59 Dexamethasone (Decadron Tab) 40 mg DAILY PO 08/03/16 09:00 09/02/16 08:59 08/03/16 08:42 40 MG Pantoprazole Sodium (Protonix Tab) 40 mg QAM PO 08/03/16 09:00 08/06/16 08:59 08/03/16 08:42 40 MG
[2016-08-03 21:48] VITALS: BP 129/66; PULSE 62
[2016-08-03] MEDS: METOPROLOL SUCC 50MG EXT REL TAB PO SCH (21:50)
[2016-08-03 23:51] VITALS: BP 144/58; PULSE 65; TEMP 37; O2SAT 94
[2016-08-04 06:57] LABS: HEMATOCRIT 29.4 % (37-47); MEAN CELL VOLUME 88.8 fL (80-100); MEAN CORPUSCULAR HGB CONC 32.7 g/dl (32-36); MEAN PLATELET VOLUME 11.9 fL (7.4-10.4); PLATELET COUNT 45 K/uL (130-400); RED BLOOD COUNT 3.31 M/uL (4.2-5.4); WHITE BLOOD COUNT 14.83 K/uL (4.8-10.8)
[2016-08-04 07:29] LABS: BUN/CREATININE RATIO 27.5 (10-20); CALCIUM 8.1 mg/dl (8.5-10.1); CREATININE 0.99 mg/dl (0.60-1.20); POTASSIUM 3.7 mmol/L (3.5-5.1)
[2016-08-04 07:44] LABS: COMPLETE YES; LYMPH ABS # 3.49 K/uL (1.2-3.4); LYMPHOCYTE % 23.5 %; NEUTROPHILS % 72.2 %
[2016-08-04 07:51] VITALS: BP 136/69; PULSE 58; TEMP 37; O2SAT 97
[2016-08-04] MEDS: AMLODIPINE BESYLATE 5 MG TAB PO SCH (08:56)
[2016-08-04] MEDS: NICOTINE 14 MG/24 HR TDSY TD SCH (08:56)
[2016-08-04] MEDS: DEXAMETHASONE 4 MG TAB PO SCH (08:57)
[2016-08-04] MEDS: PANTOprazole SOD 40 MG TAB PO SCH (08:57)
[2016-08-04 15:55] VITALS: BP 129/64; PULSE 62; TEMP 36.6; O2SAT 97
--- NOTE | 2016-08-04 18:10 | Progress Note ---
Medicine Progress Note Date & Time of Visit: August 04, 2016 at 15:53. Subjective -Pt doing well today -she appears energetic and says she is feeling well with no complaints -she just took a shower -tolerating PO -ambulatory Objective Last 8 Hrs Date Time Temp Pulse Resp B/P Pulse Ox O2 Delivery O2 Flow Rate FiO2 08/04/16 08:00 Room Air Physical Exam: GEN: WNWD, in no acute distress, alert and oriented to person, place and time. HEENT: NC/AT, normal sclerae CARDIO: reg rate, S1/2 heard without m/g/r LUNGS: CTA bilaterally, no crackles, rales or wheezes, good diaphragmatic excursion ABD: soft, multiple laparoscopy sites that are closed with stitches and covered with steri-strips, dressings are c/d/i, no surrounding erythema, yellow betadine still noted on skin, non-distended, no rebound or guarding, +BS EXTREMITY: RP and DP palpable 2+ bilat, no LE swelling or edema, extremities are warm and well-perfused NEURO: CN 2-12 grossly intact, no gross focal deficits. MUSC: no focal deficits, able to sit up on her own, moves all extremities equally. SKIN: warm and dry, petechiae noted on LUE Laboratory Results: Last 24 Hours Test 08/04/16 06:19 White Blood Count 14.83 K/uL Red Blood Count 3.31 M/uL Hemoglobin 9.6 g/dL Hematocrit 29.4 % Mean Corpuscular Volume 88.8 fL Mean Corpuscular Hemoglobin 29.0 pg Mean Corpuscular Hemoglobin Concent 32.7 g/dl Platelet Count 45 K/uL Mean Platelet Volume 11.9 fL RDW Standard Deviation 48.5 fL RDW Coefficient of Variation 14.9 % Neutrophils % (Manual) 72.2 % Lymphocytes % (Manual) 23.5 % Monocytes % (Manual) 4.3 % Neutrophils # (Manual) 10.71 K/uL Total Absolute Neutrophils 10.71 K/uL Lymphocytes # (Manual) 3.49 K/uL Total Absolute Lymphocytes 3.49 K/uL Monocytes # (Manual) 0.64 K/uL Red Blood Cell Morphology Unremarkable Sodium Level 143 mmol/L Potassium Level 3.7 mmol/L Chloride Level 109 mmol/L Carbon Dioxide Level 25 mmol/L Anion Gap 9.0 mmol/L Blood Urea Nitrogen 27 mg/dl Creatinine 0.99 mg/dl Est Creatinine Clear Calc Drug Dose 35.9 ml/min Estimated GFR () 62.4 Estimated GFR (Non- 53.8 BUN/Creatinine Ratio 27.5 Random Glucose 109 mg/dl Calcium Level 8.1 mg/dl Assessment & Plan 80 yo F s/p elective cholecystectomy on 07/31 presented to ER with fever on 08/01 and 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 Thrombocytopenia-acute likely 2/2 ITP, Dr. Rai following. PLT dropped to 21 then back up to 45 this morning, no active bleeding. Some petechiae are present today but minimal. Cont steroids-->last dose tomorrow. Daily CBC. If PLT fall <20K or if bleeding develops will order repeat transfusion. 2. Lung nodule-irregular in setting of active smoking and weight loss. PCP aware and per family request, will allow him to break the news and perform outpatient CT scan of chest. 3. post-op state-no abdominal discomfort and eating well. Gen Surg consulted. Pt is healing well from their standpoint. 4. Fever-not recurring since admission. Uncertain cause but no S/S of infection (cough, dysuria) or DVT (calf pain or swelling). No signs of bowel obstruction or bowel perforation on imaging. Cont to monitor and use SCDs to prevent DVT in this high risk patient. Blood cultures are pending 5. Leukocytosis-improved 6. Anemia-chronic, stable. DNR DVT proph-SCDs as tolerated Dispo: to home in am. Would like to send her out with Home Health for continued PT. Yadira Chaudhary DO [facility] Hospitalist Consultants: Hematology Current Inpatient Medications: Current Inpatient Medications Medications (Trade) Dose Ordered Sig/Abhilash Route Start Time Stop Time Status Last Admin Dose Admin Acetaminophen (Tylenol Tab) 650 mg Q4H PRN PO 08/02/16 00:30 09/01/16 00:29 Amlodipine Besylate (Norvasc Tab) 5 mg QAM PO 08/02/16 09:00 09/01/16 08:59 08/04/16 08:56 5 MG Metoprolol Succinate (Toprol Xl Tab) 50 mg QPM PO 08/02/16 21:00 09/01/16 20:59 08/03/16 21:50 50 MG Ondansetron HCl (Zofran Inj) 4 mg Q6H PRN IV 08/02/16 00:30 09/01/16 00:29 Tramadol HCl (Ultram Tab) 25 mg Q6H PRN PO 08/02/16 00:30 09/01/16 00:29 Hydromorphone HCl (Dilaudid Inj) 0.5 mg Q3H PRN IV 08/02/16 00:30 08/16/16 00:29 Nicotine (Nicoderm Cq 14MG Patch) 1 patch QAM TD 08/02/16 09:00 09/01/16 08:59 Miscellaneous (Remove Nicoderm Patch) 1 ea HS N/A 08/02/16 21:00 09/01/16 20:59 Dexamethasone (Decadron Tab) 40 mg DAILY PO 08/03/16 09:00 09/02/16 08:59 08/04/16 08:57 40 MG Pantoprazole Sodium (Protonix Tab) 40 mg QAM PO 08/03/16 09:00 08/06/16 08:59 08/04/16 08:57 40 MG
[2016-08-04] MEDS: METOPROLOL SUCC 50MG EXT REL TAB PO SCH (20:54)
[2016-08-04 23:29] VITALS: BP 155/75; PULSE 54; TEMP 37.2; O2SAT 94
[2016-08-05 06:39] LABS: HEMATOCRIT 31.2 % (37-47); MEAN CELL VOLUME 88.1 fL (80-100); MEAN CORPUSCULAR HEMOGLOBIN 28.5 pg (25-34); MEAN CORPUSCULAR HGB CONC 32.4 g/dl (32-36); MEAN PLATELET VOLUME 10.7 fL (7.4-10.4); PLATELET COUNT 82 K/uL (130-400); RED BLOOD COUNT 3.54 M/uL (4.2-5.4); WHITE BLOOD COUNT 17.99 K/uL (4.8-10.8)
[2016-08-05 07:04] LABS: COMPLETE YES; LYMPH ABS # 6.26 K/uL (1.2-3.4); LYMPHOCYTE % 34.8 %; NEUTROPHILS % 59.8 %
[2016-08-05 07:56] VITALS: BP 160/64; PULSE 59; TEMP 36.8; O2SAT 94
[2016-08-05] MEDS: AMLODIPINE BESYLATE 5 MG TAB PO SCH (08:56)
[2016-08-05] MEDS: PANTOprazole SOD 40 MG TAB PO SCH (08:57)
[2016-08-05] MEDS: NICOTINE 14 MG/24 HR TDSY TD SCH (08:57)
[2016-08-05] MEDS: DEXAMETHASONE 4 MG TAB PO SCH (08:57)
[2016-08-05] MEDS ORDERED: FUROSEMIDE 40 MG TAB PO SCH (09:00)
[2016-08-05] MEDS ORDERED: POTASSIUM CHLORIDE 10 MEQ TABCR PO SCH (09:00)
[2016-08-05] MEDS: LOSARTAN POTASSIUM 50 MG TAB PO SCH ×2 (09:58→10:01)
--- NOTE | 2016-08-05 10:03 | Discharge Instructions ---
Discharge Instructions Date of Service August 05, 2016. Admission Reason for Admission: Thrombocytopenia Discharge Discharge Diagnosis / Problem: Acute ITP Discharge Goals Goal(s): Prevent Disease Progression Activity Recommendations Activity Limitations: per Instructions/Follow-up section . Instructions / Follow-Up Instructions / Follow-Up Please take all medications as directed. Please follow all post-operative instructions (activity restrictions, wound care , etc) that was given to you by your surgeon. Follow-up with Surgery office per their instructions for suture removal and post -operative follow-up examination. You will need a follow-up appointment with Dr. Rai within the next two weeks. You will need to have non-fasting labwork performed on Mon, 08/05. The results will be sent to Dr. Rai's office. You will need a non-emergent CT scan of your chest; this can be ordered through Dr. Perez's office. You have an appointment set up with Dr. Perez, PCP, for Sunday, 08/11 @ 6446. Please bring all paperwork from this hospitalization. It was a pleasure taking care of you! Call if you have any questions or problems. You can reach a [facility] hospitalist on duty at [facility] 24 hours a day by calling [phone]. Take care of yourself. Yadira Chaudhary DO [facility] Current [facility] Diet Patient's current hospital diet: AHA Diet (Heart Healthy), Low Fat Diet Discharge Diet Recommended Diet: AHA Diet (Heart Healthy) Pending Studies Studies pending at discharge: no Medical Emergencies . Who to Call and When: Medical Emergencies: If at any time you feel your situation is an emergency, please call 911 immediately. . Non-Emergent Contact Non-Emergency issues call your: Primary Care Provider . . "Provider Documentation" section prepared by Yadira Chaudhary. . VTE Core Measure Inpt VTE Proph given/why not?: Contraindicated
[2016-08-05 10:06] VITALS: BP 160/64; PULSE 59; TEMP 36.8; O2SAT 94
--- NOTE | 2016-08-11 07:07 | Discharge Summary ---
Discharge Summary Date of Service August 11, 2016. Discharge Summary Admission Date: August 01, 2016 at 23:53 Discharge Date: August 05, 2016 Discharge Disposition: Home Principal Diagnosis: Thrombocytopenia 2/2 acute ITP Irregular lung nodule, concerning for malignancy in setting of smoking Tobacco use Post-op state Chronic anemia Mild cognitive decline Procedures: None. Vaccinations: None. Consultations: Hematology Pending Studies/Follow-Up: see instructions below Medication Reconciliation Continued Medications: Acetaminophen (Tylenol) 500 Mg Tab 1000 MG PO PRN, TAB Amlodipine (Norvasc) 5 Mg Tab 5 MG PO QAM, TAB Calcium Carbonate (Tums) 500 Mg Chew 2 TAB PO PRN Furosemide (Lasix) 40 Mg Tab 40 MG PO QAM, TAB Losartan Potassium (Cozaar) 100 Mg Tab 100 MG PO HS, TAB Meclizine Hcl (Meclizine Hcl) 25 Mg Tab 1 TAB PO TID PRN for DIZZINESS for 10 Days, #30 TAB Metoprolol Succ (Toprol Xl) (Toprol-Xl ) 100 Mg Tabcr 50 MG PO QPM, TAB Ondansetron Hcl (Zofran) 4 Mg Tab 4 MG PO Q6H PRN for Nausea, TAB Potassium Ext Rel (Klor-Con) 20 Meq Tabcr 10 MEQ PO HS, TAB Admission Information HPI (per Admitting provider): HISTORY OF PRESENT ILLNESS: Medical history is significant for Chronic diastolic heart failure as per records (EF 65-%, TTE 2016) dementia, hypertension, hyperlipidemia, history of non-Hodgkin's sp treatment, history of ITP status post prednisone treatment and ongoing tobacco abuse. Recent confinement in last May 2016 for symptomatic cholelithiasis. Patient was also found to have community-acquired pneumonia at that time. Discharged on doxycycline. Patient had an elective laparoscopic cholecystectomy on 07/31/2016. Perioperative heparin was administered. Postop, the patient was comfortable. This morning, the patient had low-grade fever of 100. No chest pain, no shortness of breath, no unusual belly pain. No unusual bleeding. Px was brought to the Emergency Room. Physical Exam (per Admitting): PHYSICAL EXAMINATION: VITAL SIGNS: Blood pressure was noted to be 129/65, pulse rate 70, RR 26 T 37 O2 sats 93 on room air. GENERAL: Noted to be oriented, no respiratory distress. SKIN: Pallor. HEENT: Pale palpebral conjunctivae. Dry mucosa. NECK: No JVD. Supple. CHEST: Decreased breath sounds. HEART: Regular rate and rhythm. ABDOMEN: Some distention, nontender. EXTREMITIES: No edema. no tenderness NEUROLOGIC: No gross focality. 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 Plts fell from 10K on admission to 4K the following morning and she was given one transfusion of platelets on 08/02 with good response to 31. 1. Thrombocytopenia-acute likely 2/2 ITP, Dr. Rai following. PLT dropped to 21 then back up to 45 this morning, no active bleeding. Some petechiae are present today but minimal. Cont steroids-->last dose tomorrow. Daily CBC. If PLT fall <20K or if bleeding develops will order repeat transfusion. 2. Lung nodule-irregular in setting of active smoking and weight loss. PCP aware and per family request, will allow him to break the news and perform outpatient CT scan of chest. 3. post-op state-no abdominal discomfort and eating well. Gen Surg consulted. Pt is healing well from their standpoint. 4. Fever-not recurring since admission. Uncertain cause but no S/S of infection (cough, dysuria) or DVT (calf pain or swelling). No signs of bowel obstruction or bowel perforation on imaging. Cont to monitor and use SCDs to prevent DVT in this high risk patient. Blood cultures are pending 5. Leukocytosis-improved 6. Anemia-chronic, stable. On day of discharge she was afebrile and hemodynamically stable. There was only some petechiae which had been present in prior days but no worsened bruising and no bleeding was present. Otherwise physical exam was unremarkable. She was ambulatory and was tolerating PO. Daughters were at bedside and plan was explained. She will be given a lab script to obtain labwork in two days for platelet monitoring and follow-up with Heme, PCP, and Surgery per instructions given. She was sent home in stable condition with final PLT count >80. Total time spent on discharge = 60 minutes This includes examination of the patient, discharge planning, medication reconciliation, and communication with other providers. Discharge Instructions Discharge Instructions Date of Service August 05, 2016. Admission Reason for Admission: Thrombocytopenia Discharge Discharge Diagnosis / Problem: Acute ITP Discharge Goals Goal(s): Prevent Disease Progression Activity Recommendations Activity Limitations: per Instructions/Follow-up section . Instructions / Follow-Up Instructions / Follow-Up Please take all medications as directed. Please follow all post-operative instructions (activity restrictions, wound care , etc) that was given to you by your surgeon. Follow-up with Surgery office per their instructions for suture removal and post -operative follow-up examination. You will need a follow-up appointment with Dr. Rai within the next two weeks. You will need to have non-fasting labwork performed on Sun, 08/05. The results will be sent to Dr. Rai's office. You will need a non-emergent CT scan of your chest; this can be ordered through Dr. Perez's office. You have an appointment set up with Dr. Perez, PCP, for Sunday, 08/11 @ 2512. Please bring all paperwork from this hospitalization. It was a pleasure taking care of you! Call if you have any questions or problems. You can reach a [facility] hospitalist on duty at [facility] 24 hours a day by calling [phone]. Take care of yourself. Yadira Chaudhary, DO [facility] Additional Copies To aCleb Taylor M.D.; Cruz Perez M.D.
== END 2016-08-05 11:01 | disposition home or self-care (01) | DRG 813 ==
LOC: ENRESERVDT → ENRESERVTM → C.EDB 19:42 → C.MS2W 23:53
PROVIDERS: ADMIT Internal Medicine; ATTEND Hospitalist
DX: D69.3 Immune thrombocytopenic purpura (principal); N17.9 Acute kidney failure, unspecified; I50.32 Chronic diastolic (congestive) heart failure; Z92.21 Personal history of antineoplastic chemotherapy; D72.829 Elevated white blood cell count, unspecified; R50.9 Fever, unspecified; G30.9 Alzheimer's disease, unspecified; E87.6 Hypokalemia; I11.0 Hypertensive heart disease with heart failure; R91.1 Solitary pulmonary nodule; E78.5 Hyperlipidemia, unspecified; D64.9 Anemia, unspecified; Z85.72 Personal history of non-Hodgkin lymphomas; Z79.899 Other long term (current) drug therapy; Z66 Do not resuscitate; Z87.891 Personal history of nicotine dependence; Z86.19 Personal history of other infectious and parasitic diseases; Z98.890 Other specified postprocedural states; Z90.49 Acquired absence of other specified parts of digestive tract

== ENCOUNTER 2017-03-06 13:49 | Emergency (ER) | payer OTHER ==
[~2017-03-06] VITALS: Ht 160 cm; Wt 59.9 kg
[2017-03-06 13:57] VITALS: TEMP 36.7; Ht 160 cm; Wt 59.9 kg
--- NOTE | 2017-03-06 14:18 | EMERGENCY ROOM VISIT NOTE ---
History Report prepared by Eduardo: Olvin Pablo Under the Supervision of: Dr. Martell Dexter M.D. First contact with patient: 14:05 Chief Complaint: HEADACHE Stated Complaint: HEADACHES, DIZZY SPELLS, VERTIGO History of Present Illness The patient is an 81 year old female who presents to the Emergency Room with complaints of intermittent headaches in the back of her head for the past two and a half weeks. She states that she is currently in minimal discomfort, and lying down relieves the pain. The patient's family additionally states that the patient has been having dizzy spells. She fell a couple weeks ago after being dizzy, and they are unsure if she hit her head. The patient is denying and vomiting, neck pain, chest pain, shortness of breath, abdominal pain, fever, numbness, weakness, and bowel or bladder problems. She states that she has a history of ITP, and she is not on any blood thinners. Additionally, the son states that the patient has a history of a TIA, a pot on her lung, and she has been going into [employer] for the past month. Source of History: patient Onset: two and a half weeks ago Position: head Symptom Intensity: minimal Quality: ache Timing: intermittent Associated Symptoms: No neck pain, No chest pain, No SOB, No vomiting, No abdominal pain Note: Associated symptoms: dizziness Review of Systems See HPI for pertinent positives & negatives. A total of 10 systems reviewed and were otherwise negative. 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 (8) HTN (hypertension) (9) Hypertension (10) Hypertensive urgency (11) Pneumonia (12) Pneumonia (13) Thrombocytopenia (14) Tobacco use disorder Surgical Problems: (1) H/O breast biopsy (2) H/O oophorectomy (3) H/O tubal ligation Old medical records were reviewed. Nurse's notes were reviewed and I agree with. Family History FH: pancreatic cancer MOTHER Social History Smoking Status: Current Every Day Smoker Alcohol Use: none Drug Use: none Marital Status: Housing Status: lives with family Occupation Status: retired Current/Historical Medications Scheduled Acetaminophen (Tylenol), 1,000 MG PO PRN Amlodipine (Norvasc), 5 MG PO QPM Calcium Carbonate (Tums), 2 TAB PO PRN Losartan Potassium (Cozaar), 100 MG PO HS Metoprolol Succ (Toprol Xl) (Toprol-Xl ), 50 MG PO QPM Scheduled PRN Meclizine Hcl (Meclizine Hcl), 1 TAB PO TID PRN for DIZZINESS Ondansetron Hcl (Zofran), 4 MG PO Q6H PRN for Nausea Allergies Coded Allergies: Red Dye (Verified Allergy, Intermediate, DYES- HIVES, 03/06/17) Yellow Dyes (Verified Allergy, Intermediate, DYES- HIVES, 03/06/17) D&C Red #22 (Verified Allergy, Unknown, PER FAMILY, PT IS ALLERGIC TO ALL DYES, 03/06/17) Penicillins (Verified Allergy, Unknown, UNKNOWN, 03/06/17) Shellfish (Unverified Allergy, Unknown, UNKNOWN, 03/06/17) Lisinopril (Unverified Adverse Reaction, Intermediate, COUGH, 03/06/17) Uncoded Allergies: LIS (Allergy, Severe, Hives, 07/31/16) "ALL DYES" (Allergy, Unknown, HIVES, 08/05/16) "could be severe", hives. Physical Exam Vital Signs Date Time Temp Pulse Resp B/P (MAP) Pulse Ox O2 Delivery O2 Flow Rate FiO2 03/06/17 15:49 56 23 164/80 93 03/06/17 15:07 50 22 183/79 95 Room Air 03/06/17 13:57 36.7 59 18 178/74 93 Room Air Physical Exam General: Non-ill appearing older female in no acute distress. Baseline dementia but answers most questions appropriately. She does not know the date. HEENT: Normal cephalic atraumatic. Pupils are equal round and reactive to light. Extraocular movements are intact. Oropharynx is pink with moist mucous membranes. No swelling of the mouth lips or tongue. Neck: Supple with a midline trachea. No meningeal signs or stiffness, no JVD or bruits. No Stridor. Chest: Clear to auscultation bilaterally. No wheezes or rhonchi. No increased work of breathing. Heart: regular rate and rhythm. Abdomen: Soft nontender, nondistended without rebound guarding or rigidity. Extremities: No cyanosis clubbing or edema. No calf tenderness or assymetry Spine/Back. Non tender to palpation. No CVA tenderness Skin: Good turgor without rashes. Neurologic exam: Cranial nerves two through 12 are intact. Motor and sensation are intact and symmetrical throughout. Medical Decision & Procedures ER Provider Diagnostic Interpretation: Radiology results as stated below per my review and radiologist interpretation: HEAD WITHOUT CONTRAST (CT) CLINICAL HISTORY: 81 years-old Female with eval for ICH, headache. Acute headache. TECHNIQUE: Multiple axial CT images of the head were obtained without contrast. A dose lowering technique was utilized adhering to the principles of ALARA. CT DOSE: 537.48 mGy.cm COMPARISON: Head CT 06/28/2016. FINDINGS: No acute intracranial hemorrhage, midline shift, intracranial mass, hydrocephalus, territorial ischemia or abnormal extra-axial collection. Moderate atrophy with ex vacuo ventriculomegaly. Advanced chronic microvascular ischemic changes are noted. Foci of low attenuation within the basal ganglia are again seen suggesting remote lacunar infarctions, notably with a 1.0 x 1.1 cm area of low-attenuation within the region of the right lentiform nucleus. These findings are unchanged. Remote infarction of the left thalamus also noted. The calvarium is intact. The paranasal sinuses, mastoid air cells, and middle ear cavities are clear. IMPRESSION: No acute intracranial abnormality. The above report was generated using voice recognition software. It may contain grammatical, syntax or spelling errors. Electronically signed by: Nakul Valle M.D. 03/06/2017 2:59 PM Dictated Date/Time: 03/06/2017 2:56 PM CHEST ONE VIEW PORTABLE HISTORY: 81 years-old Female CHEST PAIN acute atypical chest pain with dizziness and vertigo COMPARISON: Acute abdominal series radiographs 08/01/2016 TECHNIQUE: Portable AP view of the chest FINDINGS: Cardiomediastinal and hilar silhouettes are within normal limits. Patient is mildly rotated to the right. No pneumothorax. Irregular 1.6 x 1.2 cm nodular opacity of the left upper lung is seen. Mild blunting of the right cost phrenic angle is again. Mild hyperinflation. Bones are grossly intact. IMPRESSION: 1. No acute cardiopulmonary process. 2. 1.6 cm nodular opacity of the left upper lung is redemonstrated suspicious for pulmonary nodule. 3. Mild blunting of the right costophrenic angle suggests atelectasis or trace effusion. The above report was generated using voice recognition software. It may contain grammatical, syntax or spelling errors. Electronically signed by: Nakul Valle M.D. 03/06/2017 2:50 PM Dictated Date/Time: 03/06/2017 2:45 PM Laboratory Results 03/06/17 14:35 Red Blood Count 4.64, Mean Corpuscular Volume 86.2, Mean Corpuscular Hemoglobin 28.9, Mean Corpuscular Hemoglobin Concent 33.5, Mean Platelet Volume 9.1 03/06/17 14:35 Test 03/06/17 14:35 03/06/17 14:39 White Blood Count 11.55 K/uL (4.8-10.8) Red Blood Count 4.64 M/uL (4.2-5.4) Hemoglobin 13.4 g/dL (12.0-16.0) Hematocrit 40.0 % (37-47) Mean Corpuscular Volume 86.2 fL (80-100) Mean Corpuscular Hemoglobin 28.9 pg (25-34) Mean Corpuscular Hemoglobin Concent 33.5 g/dl (32-36) Platelet Count 112 K/uL (130-400) Mean Platelet Volume 9.1 fL (7.4-10.4) RDW Standard Deviation 48.9 fL (36.4-46.3) RDW Coefficient of Variation 15.6 % (11.5-14.5) Neutrophils % (Manual) 28.7 % Lymphocytes % (Manual) 28.7 % Variant Lymphocytes % (manual) 35.7 % Monocytes % (Manual) 5.2 % Eosinophils % (Manual) 1.7 % Neutrophils # (Manual) 3.31 K/uL (1.4-6.5) Total Absolute Neutrophils 3.31 K/uL (1.4-6.5) Lymphocytes # (Manual) 3.31 K/uL (1.2-3.4) Absolute Variant Lymphocytes 4.12 K/uL Total Absolute Lymphocytes 7.44 K/uL (1.2-3.4) Monocytes # (Manual) 0.60 K/uL (0.11-0.59) Eosinophils # (Manual) 0.20 K/uL (0-0.5) Ovalocytes 1+ Acanthocytes 1+ Schistocytes OCCASIONAL Prothrombin Time 10.0 SECONDS (9.0-12.0) Prothromb Time International Ratio 1.0 (0.9-1.1) Activated Partial Thromboplast Time 24.9 SECONDS (21.0-31.0) Partial Thromboplastin Ratio 1.0 Anion Gap 7.0 mmol/L (3-11) Est Creatinine Clear Calc Drug Dose 39.7 ml/min Estimated GFR () 67.7 Estimated GFR (Non- 58.4 BUN/Creatinine Ratio 15.7 (10-20) Calcium Level 9.2 mg/dl (8.5-10.1) Total Bilirubin 0.4 mg/dl (0.2-1) Direct Bilirubin 0.1 mg/dl (0-0.2) Aspartate Amino Transf (AST/SGOT) 20 U/L (15-37) Alanine Aminotransferase (ALT/SGPT) 15 U/L (12-78) Alkaline Phosphatase 91 U/L (45-117) Total Protein 6.9 gm/dl (6.4-8.2) Albumin 3.5 gm/dl (3.4-5.0) Lipase 113 U/L (73-393) Bedside Troponin I < 0.030 ng/ml (0-0.045) Laboratory studies as stated above per my review. ECG Indication: other (headache and dizziness) Rate (beats per minute): 53 Rhythm: sinus bradycardia Findings: other (ST and T wave abnormality inferiorly and laterally) Comparison ECG Date: 06/28/16 Change: no significant change ED Course 1405: Past medical records reviewed. The patient was evaluated in room B5, and a complete history and physical examination were performed. 1510: I reevaluated the patient, and she was doing well. 1518: I discussed the patient's case with Dr. Rai - Raj/oncology, and he states that there is no needed treatment at this time. 1522: Upon reevaluation, the patient is resting comfortably. I discussed the results and treatment plan with her and her family. They verbalized agreement of the treatment plan. The patient was discharged home. Medical Decision Differentials include, but are not limited to; intracranial hemorrhage, skull fracture, vertigo, cancer complications, arrhythmia, and hematologic abnormality. This patient comes in as described above. She was placed in room B5 she is brought in by her family after having intermittent headaches for couple weeks. There may have been a fall at some point. She has baseline dementia but has no complaints at present and otherwise has a nonfocal neurologic exam. IV access was established and blood work was obtained. EKG does not suggest acute coronary syndrome or arrhythmia. She has sinus bradycardia and T-wave abnormalities which are unchanged from previous. CAT scan of her head was unremarkable. Chest x-ray shows a known pulmonary lesion which the family has opted not to biopsy or treatment given her other medical issues. She has no acute electrolyte or metabolic abnormalities. Her platelets were mildly low at 112,000. She does have a history of chronic ITP and I did discuss the case with Dr. Rai, who is her oncologist, and he does not feel that she needs any treatment for this but close monitoring and the patient will have her blood work rechecked in 2-3 days. She should return if: increasing pain, worsening of symptoms, any new problems or concerns. They're happy with the plan and she was discharged to home. Medication Reconcilliation Current Medication List: was personally reviewed by me Blood Pressure Screening Patient's blood pressure: Elevated blood pressure Blood pressure disposition: Referred to PCP Consults Time Called: 1515 Consulting Physician: Dr. Fredi Anthony/Oncology Returned Call: 1518 I discussed the patient's case with Dr. Fredi Anthony/oncology, and he states that there is no needed treatment at this time. Impression Primary Impression: Headache Additional Impression: History of ITP Scribe Attestation The scribe's documentation has been prepared under my direction and personally reviewed by me in its entirety. I confirm that the note above accurately reflects all work, treatment, procedures, and medical decision making performed by me. Departure Information Dispostion Home / Self-Care Referrals Cruz Perez M.D. (PCP) Forms HOME CARE DOCUMENTATION FORM, IMPORTANT VISIT INFORMATION Patient Instructions My [facility] Additional Instructions Rest. Drink plenty of fluids. May use [id number] acetaminophen/Tylenol if needed for headache, do not exceed the [id number] dosing regimen Return if: Increasing pain, fever or chills, numbness weakness, any new problems or concerns Your platelets today were 112,000. Have this rechecked later this week and follow-up with your doctor or Dr. Rai. At this point Dr. Rai does not believe any treatment but if this does go down you may need steroids Problem Qualifiers
[2017-03-06 14:48] LABS: MEAN CELL VOLUME 86.2 fL (80-100); MEAN CORPUSCULAR HEMOGLOBIN 28.9 pg (25-34); MEAN CORPUSCULAR HGB CONC 33.5 g/dl (32-36); MEAN PLATELET VOLUME 9.1 fL (7.4-10.4); PLATELET COUNT 112 K/uL (130-400); RED BLOOD COUNT 4.64 M/uL (4.2-5.4); WHITE BLOOD COUNT 11.55 K/uL (4.8-10.8)
--- NOTE | 2017-03-06 14:52 | DIAGNOSTIC IMAGING REPORT ---
CHEST ONE VIEW PORTABLE HISTORY: 81 years-old Female CHEST PAIN acute atypical chest pain with dizziness and vertigo COMPARISON: Acute abdominal series radiographs 08/01/2016 TECHNIQUE: Portable AP view of the chest FINDINGS: Cardiomediastinal and hilar silhouettes are within normal limits. Patient is mildly rotated to the right. No pneumothorax. Irregular 1.6 x 1.2 cm nodular opacity of the left upper lung is seen. Mild blunting of the right cost phrenic angle is again. Mild hyperinflation. Bones are grossly intact. IMPRESSION: 1. No acute cardiopulmonary process. 2. 1.6 cm nodular opacity of the left upper lung is redemonstrated suspicious for pulmonary nodule. 3. Mild blunting of the right costophrenic angle suggests atelectasis or trace effusion. The above report was generated using voice recognition software. It may contain grammatical, syntax or spelling errors. Electronically signed by: Nakul Valle M.D. 03/06/2017 2:50 PM Dictated Date/Time: 03/06/2017 2:45 PM
--- NOTE | 2017-03-06 15:00 | DIAGNOSTIC IMAGING REPORT ---
HEAD WITHOUT CONTRAST (CT) CLINICAL HISTORY: 81 years-old Female with eval for ICH, headache. Acute headache. TECHNIQUE: Multiple axial CT images of the head were obtained without contrast. A dose lowering technique was utilized adhering to the principles of ALARA. CT DOSE: 537.48 mGy.cm COMPARISON: Head CT 06/28/2016. FINDINGS: No acute intracranial hemorrhage, midline shift, intracranial mass, hydrocephalus, territorial ischemia or abnormal extra-axial collection. Moderate atrophy with ex vacuo ventriculomegaly. Advanced chronic microvascular ischemic changes are noted. Foci of low attenuation within the basal ganglia are again seen suggesting remote lacunar infarctions, notably with a 1.0 x 1.1 cm area of low-attenuation within the region of the right lentiform nucleus. These findings are unchanged. Remote infarction of the left thalamus also noted. The calvarium is intact. The paranasal sinuses, mastoid air cells, and middle ear cavities are clear. IMPRESSION: No acute intracranial abnormality. The above report was generated using voice recognition software. It may contain grammatical, syntax or spelling errors. Electronically signed by: Nakul Valle M.D. 03/06/2017 2:59 PM Dictated Date/Time: 03/06/2017 2:56 PM
[2017-03-06 15:11] LABS: BUN/CREATININE RATIO 15.7 (10-20); CALCIUM 9.2 mg/dl (8.5-10.1); CREATININE 0.92 mg/dl (0.60-1.20); POTASSIUM 3.2 mmol/L (3.5-5.1)
[2017-03-06 15:49] VITALS: BP 164/80; PULSE 56; O2SAT 93
[2017-03-06 15:57] LABS: ACANTHOCYTES 1+; COMPLETE YES; EOSINOPHIL % 1.7 %; LYMPH ABS # 3.31 K/uL (1.2-3.4); LYMPHOCYTE % 28.7 %; NEUTROPHILS % 28.7 %; OVALOCYTES 1+; SCHISTOCYTES OCCASIONAL; VARIANT LYM ABS # 4.12 K/uL; VARIANT LYMPHOCYTE % 35.7 %
== END 2017-03-06 15:42 | disposition home or self-care (01) ==
LOC: C.EDB 13:51
DX: R51 Headache (principal); D69.3 Immune thrombocytopenic purpura; W19.XXXA Unspecified fall, initial encounter; I48.91 Unspecified atrial fibrillation; Z86.73 Personal history of transient ischemic attack (TIA), and cerebral infarction without residual deficits; G30.9 Alzheimer's disease, unspecified; F02.80 Dementia in other diseases classified elsewhere, unspecified severity, without behavioral disturbance, psychotic disturbance, mood disturbance, and anxiety; E78.5 Hyperlipidemia, unspecified; I10 Essential (primary) hypertension; Z87.01 Personal history of pneumonia (recurrent); F17.210 Nicotine dependence, cigarettes, uncomplicated; Z80.9 Family history of malignant neoplasm, unspecified; Z79.899 Other long term (current) drug therapy